=== PATIENT | female | born 2000 | race Two or more races ===

== ENCOUNTER 2020-12-14 15:33 | Outpatient (REF) | payer MEDICAID, SELFPAY ==
[2020-12-15 11:54] LABS: HBc Num1 0.06 S/CO (0.00-0.79); HBsAGNum1 0.19 S/CO (0.00-0.99); Hepatitis B Core Antibody Nonreactive (Nonreactive); Hepatitis B Surface Antigen Negative (Negative)
[2020-12-15 13:41] LABS: Rubeola IgG (Measles) >300.00 AU/mL
[2020-12-15 17:21] LABS: Rubella IgG Antibody 3.21 Index; Varicella IgG Antibody <135.00 index
[2020-12-16 08:36] LABS: HBS Num1 0.58 mIU/mL (0-7.99); ~Hepatitis B Surface Antibody NONREACTIVE (Nonreactive)
== END 2020-12-14 15:34 | disposition home or self-care (01) ==
LOC: HO.LAB 15:33
PROVIDERS: PCP Internal Medicine; Visit Provider Internal Medicine
DX: Z01.84 Encounter for antibody response examination (principal)
CPT/HCPCS: 36415; 86704; 86706; 86735; 86762; 86765; 86787; 87340

== ENCOUNTER 2021-05-24 14:01 | Outpatient (REF) | payer MEDICAID, SELFPAY ==
--- NOTE | ~2021-05-24 | XR_ITS ---
EXAMINATION: XR LUMBOSACRAL SPINE CLINICAL INFORMATION: Pain COMPARISON: None TECHNIQUE: Four views of the lumbosacral spine. FINDINGS: The vertebral bodies and posterior elements are normal. The disc spaces are preserved and the vertebral alignment is normal. The paraspinal soft tissues are normal. XR/XR lumbar spine 2-3V IMPRESSION: Unremarkable examination.
[2021-05-24 14:38] LABS: Hematocrit 37.3 % (37.0-47.0); Mean Corpuscular HGB Conc 32.2 g/dl (31.0-35.0); Mean Corpuscular Hemoglobin 26.4 pg (27.0-33.0); Mean Platelet Volume 9.7 fL (9.4-12.3); Platelet Count 342 X10*3/uL (160-400); Red Blood Count 4.55 X10*6/uL (4.20-5.50); Red Cell Distribution Width 13.2 % (11.0-16.0); White Blood Count 6.4 X10*3/uL (4.8-10.8)
[2021-05-24 15:01] LABS: Alanine Aminotransferase 20 U/L (0-31); Albumin Level 4.2 g/dL (3.5-5.0); Alkaline Phosphatase 109 U/L (39-117); Anion Gap 12 (12-20); Aspartate Amino Transferase 16 U/L (5-31); Bilirubin Total 0.5 mg/dL (0.0-1.0); Blood Urea Nitrogen 16 mg/dL (9-16); Calcium 9.8 mg/dL (8.4-10.2); Carbon Dioxide 28 mmol/L (22-29); Chloride 104 mmol/L (96-108); Estimated Glomerular Filt Rate > 60; Glucose Random 106 mg/dL (60-115); Sodium 140 mmol/L (135-145); Total Protein 7.5 g/dL (6.5-8.0)
[2021-05-24 15:21] LABS: Thyroid Stimulating Hormone 0.36 uIU/mL (0.32-4.0); Vitamin D 25-OH Total 8.1 ng/mL (>30)
[2021-05-24 16:58] LABS: Folate 10.6 ng/mL (> or = 4.0); Vitamin B12 617 pg/mL (200-900)
[2021-05-25 08:32] LABS: HBS Num1 2.58 mIU/mL (0-7.99); HBc Num1 0.08 S/CO (0.00-0.79); HBsAGNum1 0.17 S/CO (0.00-0.99); Hepatitis B Core Antibody Nonreactive (Nonreactive); Hepatitis B Surface Antigen Negative (Negative); ~Hepatitis B Surface Antibody NONREACTIVE (Nonreactive)
[2021-05-26 20:36] LABS: TS Negative Control Passed; TS Panel A 0; TS Panel B 0; TS Positive Control Passed; TSpotTB Negative (Negative)
== END 2021-05-24 14:02 | disposition home or self-care (01) ==
LOC: HO.XRAY 14:01
PROVIDERS: PCP Internal Medicine; Visit Provider Nurse Practitioner Family
DX: Z01.84 Encounter for antibody response examination (principal); Z11.1 Encounter for screening for respiratory tuberculosis; R53.83 Other fatigue; M54.9 Dorsalgia, unspecified; Z28.3 Underimmunization status
CPT/HCPCS: 36415; 72100; 80053; 82306; 82607; 82746; 84443; 85027; 86481; 86704; 86706; 86787; 87340

== ENCOUNTER 2021-06-08 11:54 | Emergency (ER) | payer MEDICAID, SELFPAY ==
[2021-06-08 12:11] VITALS: BP 144/76; PULSE 108; RESP 18; TEMP 36.9; O2SAT 97; BMI 33.4
--- NOTE | 2021-06-08 14:08 | ED.GENADULT ---
HPI - General Adult General Chief complaint: General Medical Stated complaint: rash, ?allergic reaction Time Seen by Provider: 06/08/21 14:07 Source: patient Mode of arrival: ambulatory Limitations: no limitations History of Present Illness HPI narrative: 21-year-old female presents for a rash in her bilateral upper thighs. Yesterday patient had a migraine, and took Tylenol. After the Tylenol she had reports a rash all over her face, size, stomach, back, and chest. States the rash is painful mildly itchy. No new soaps, body wash, laundry detergent, clothes, foods, etc.. No wheezing, no tongue swelling, no lip swelling, no throat swelling, patient is not short of breath, no chest pain In addition, patient has had sore throat, a dry cough, and body aches that started yesterday as well. She states her mother took her temperature and told her she had a fever last night. She took a negative COVID test last night at home She is vaccinated for COVID, Related Data Previous Rx's Medication Instructions Recorded hydroxyzine HCl 25 mg tablet 25 mg PO BID PRN #10 tab 05/02/21 cholecalciferol (vitamin D3) 25 25 mcg PO DAILY #90 cap 05/25/21 mcg (1,000 unit) capsule famotidine 40 mg tablet (Pepcid) 40 mg PO BEDTIME #10 tab 06/08/21 prednisone 20 mg tablet 60 mg PO DAILY 5 Days #15 tab 06/08/21 Allergies Allergy/AdvReac Type Severity Reaction Status Date / Time No Known Allergies Allergy Verified 05/02/21 15:53 Review of Systems Constitutional: Constitutional: Reports body ache(s), Reports chills, Reports fatigue, Reports fever(s), Reports headache(s), Reports malaise and Denies weakness Eyes: Eyes: Denies diplopia ENT: Denies vertigo, Denies dizziness, Denies otalgia, Reports headache(s), Denies mouth pain, Reports nasal congestion, Denies post nasal drip, Denies sinus pain, Denies sinus pressure, Reports sore throat and Denies throat swelling Cardiovascular: Cardiovascular: Denies chest pain, Denies syncope, Denies leg edema, Denies lightheadedness, Denies Loss of Consciousness, Denies palpitations and Denies dyspnea Respiratory: Respiratory: Denies chest congestion, Reports cough and Denies dyspnea Gastrointestinal: Gastrointestinal: Denies abdominal pain, Denies hematochezia, Denies constipation, Denies diarrhea, Denies nausea and Denies vomiting Musculoskeletal: Musculoskeletal: Reports no additional musculoskeletal complaints Integumentary/Breasts: Skin/Breast: Reports rash Neurologic: Denies confusion, Denies vertigo, Denies dizziness, Denies syncope, Reports headache(s) and Denies weakness Psychiatric: Psychiatric: Denies anxiety, Denies confusion and Denies depression Endocrine: Endocrine: Reports fatigue and Denies palpitations Allergic/Immunologic: Allergic/Immunologic: Denies throat swelling PMFSH Past Medical History Medical History Hypovitaminosis Immunizations incomplete Neutropenia Surgical History Hx laparoscopic cholecystectomy Family History Family History Father Hypertension Mother No problems noted. Paternal Grandfather Hypertension Diabetes Paternal Uncle Stroke Brother No problems noted. Brother No problems noted. 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 Cognitive needs: No Hearing needs: No Vision needs: Yes (Glasses) Physical Exam Vital Signs: Vital Signs: Last Vital Signs Temp 97.8 F 06/08/21 14:30 Pulse 97 06/08/21 14:30 Resp 15 06/08/21 14:30 BP 113/60 06/08/21 14:30 Pulse Ox 99 06/08/21 14:30 BMI result Body Mass Index 33.4 Const: General: well developed, alert and awake; No confusion Nutritional Appearance: well nourished Orientation/consciousness: patient oriented x3 and No confusion Limitations: no limitations HENMT: Head: Yes normal to inspection, Yes normocephalic and Yes atraumatic Ears: hearing grossly normal bilaterally, external ears normal, TM's normal bilaterally and EAC's normal General nose exam: Normal external nose present Face and sinus: Yes normal facial exam and Yes sinuses nontender Mouth: Normal oral and palatal mucosa present and moist mucous membranes Throat: Yes posterior oropharynx abnormal (Erythematous) and Yes postnasal drainage Eyes: Conjunctivae: conjunctivae normal Pupils: Equal, round and reactive pupils present EOM: EOMs intact bilaterally Neck: Neck: Yes full ROM, Yes no lymphadenopathy and Yes supple Resp: Effort & Inspection: normal respiratory effort and able to speak in complete sentences Auscultation: clear to auscultation bilaterally, no crackles, no rales, no rhonchi and no wheezes Cardio: Rate: regular rate Rhythm: regular rhythm Heart sounds: S1 normal heart sound present and S2 normal heart sound present GI: Inspection: Yes normal to inspection Palpation (GI): Soft to palpation, nontender, no guarding and not rigid Percussion: Yes normal to percussion Auscultation: normal bowel sounds Skin: Other: Diffuse maculopapular rash bilateral upper thighs that is blanching. Neuro: General: patient oriented x3 and No confusion Cranial nerves: Yes Equal, round and reactive pupils present Extrem: General: Yes normal to inspection and Yes full ROM Psych: Appearance: grossly normal Affect: normal affect Attitude: cooperative Thought process: Normal thought process present Course Course Course Narrative: 21-year-old female presents for rash on bilateral upper thighs with COVID like symptoms. Patient has a patent airway, lungs clear to auscultation bilaterally, no wheezing, no angioedema Rash is macular papular, diffuse over bilateral inner thighs. Rash is blanching. Patient has stable vitals, will get COVID swab, treat with prednisone, Pepcid, Benadryl Reevaluation(s) Reevaluation #1: Patient is COVID positive. Will send patient home on prednisone, Pepcid, Benadryl. Counseled isolate for 10 days, drink plenty of fluids, and rest. Counseled no more Tylenol, as this could be the cause of her rash. Counseled to return to emergency room if chest tightness, wheezing, throat swelling, lip swelling or shortness of breath. Counseled patient she showed talk to her primary care provider as they meant want to do allergy referral as patient may have had an allergic reaction to Tylenol Medical Decision Making Lab Data Labs: Lab Results 06/08/21 Range/Units 14:30 COVID-19 (JESSICA) Positive A (Negative) COVID-19 Clin Com See Note Discharge Plan Discharge Clinical Impression: COVID-19 Allergic reaction Qualifiers: Encounter type: initial encounter Qualified Code(s): T78.40XA - Allergy, unspecified, initial encounter Patient Disposition: Home, Self-Care Instructions: Allergy Testing (ED), COVID-19 (Coronavirus Disease 2019) (ED) Additional Instructions: Please call your primary care provider for follow-up appointment to investigate the source of your rash. You may knee allergy testing. Please DO NOT take anymore Tylenol, as this could be the source of your rash. Please quarantine for 10 days, isolated at home, stay in 1 room, supper bathroom, where mass, wash her hands. Fill your prescription for prednisone and Pepcid, you may take Benadryl for the itching as needed. You may buy Benadryl [id number]. Please return to the emergency room he have chest pain or shortness of breath, or for any other new or concerning symptoms Prescriptions: New prednisone 20 mg tablet 60 mg PO DAILY 5 Days Qty: 15 RF: 0 famotidine [Pepcid] 40 mg tablet 40 mg PO BEDTIME Qty: 10 RF: 0 No Action cholecalciferol (vitamin D3) 25 mcg (1,000 unit) capsule 25 mcg PO DAILY Qty: 90 RF: 0 hydroxyzine HCl 25 mg tablet 25 mg PO BID PRN (Reason: anxiety) Qty: 10 RF: 0
[2021-06-08 14:30] VITALS: BP 113/60; PULSE 97; RESP 15; TEMP 36.6; O2SAT 99
[2021-06-08 14:48] LABS: COVID-19 Test Positive (Negative)
[2021-06-08] MEDS: Famotidine 20 MG TABLET PO (16:16)
[2021-06-08] MEDS: diphenhydrAMINE HCL 25 MG TABLET PO (16:16)
[2021-06-08] MEDS: predniSONE 20 MG TABLET 60 MG PO (16:16)
== END 2021-06-08 16:21 | disposition home or self-care (01) ==
PROVIDERS: Physician Assistant; Emergency Provider Emergency Medicine; PCP Internal Medicine
DX: U07.1 COVID-19 (principal); R21 Rash and other nonspecific skin eruption; Z79.899 Other long term (current) drug therapy
CPT/HCPCS: 36415; 87635; 99283; Q0163

== ENCOUNTER 2021-11-17 10:00 | Outpatient (RCR) | payer MEDICAID, SELFPAY ==
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
--- NOTE | 2021-11-20 16:23 | MHC.PT.DC ---
[facility] [place] Office [place] Office [place] Office [address] Hermelinda De Dios [address] [phone] F: [phone] F: [phone] F: [phone] F: [phone] Physical Therapy Discharge Report Diagnosis: Pt IS 21 YO F REFERRED TO PF [facility] WITH DORSALGIA. Date of Surgery: NA Date of Evaluation: 10/30/21 Date of Discharge: 11/20/21 Treatments to Date: 4 Cancellations to Date: No Shows to Date: Discharge Status: Patient Elected to Stop Recommend MD Follow-up Discharge Summary: Pt SEEN FOR INIT EVAL AND 3 VISITS. HAS BEGUN HOME PROGRAM, TRIAL KT AND EDUCATED RE POSTURE/BACK CARE. AT LAST APPT PER ASSESSMENT BY ANDREWS WALDRON, PT. Pt CHALLENGED W KINESTHETIC AWARENESS , ESPEC W STAG STANCE EXER- INCR TISSUE TENSION CYNTHIA LUMB PS MM AND REINFORCED SELF POSTURAL CORRECTION, PROPER SUPPORTIVE BRA, AND BENEFITS OF HEP-> LESS GUARDED AFTER ABOVE . ON 11/20/21, Pt THEN CALLED TO CANCEL FURTHER APPTS BECAUSE SHE HAS A NEW JOB. Electronically signed by: SEN ETIENNE PT Please sign and return to therapist. Thank you for your referral.
== END 2021-11-20 16:23 | disposition home or self-care (01) ==
LOC: HO.PT 10:00
PROVIDERS: PCP Internal Medicine; Visit Provider Nurse Practitioner Family
DX: M54.9 Dorsalgia, unspecified (principal)
CPT/HCPCS: 97110; 97112; 97140; 97161; 97535

== ENCOUNTER 2022-01-24 10:31 | Outpatient (REF) | payer MEDICAID, SELFPAY ==
[2022-01-24 12:21] LABS: Alanine Aminotransferase 17 U/L (0-31); Albumin Level 4.3 g/dL (3.5-5.0); Alkaline Phosphatase 109 U/L (39-117); Anion Gap 14 (12-20); Aspartate Amino Transferase 17 U/L (5-31); Bilirubin Total 0.3 mg/dL (0.0-1.0); Blood Urea Nitrogen 11 mg/dL (9-16); Calcium 9.3 mg/dL (8.4-10.2); Carbon Dioxide 26 mmol/L (22-29); Chloride 105 mmol/L (96-108); Cholesterol 110 mg/dL; Estimated Glomerular Filt Rate > 60; Glucose Fasting 105 mg/dL (60-99); HDL Cholesterol 35 mg/dL; LDL Cholesterol Calculated 67 mg/dl; Potassium 4.4 mmol/L (3.3-5.1); Sodium 141 mmol/L (135-145); Total Protein 7.5 g/dL (6.5-8.0); Triglycerides 43 mg/dL
[2022-01-24 12:34] LABS: HBsAGNum1 0.32 S/CO (0.00-0.99); HIV AB/AG Nonreactive (Nonreactive); HIV Num 1 0.08 S/CO (0.00-0.99); Hepatitis B Surface Antigen Negative (Negative); ~HepC Num1 0.04 S/CO (0.00-0.79); ~Hepatitis C Antibody Nonreactive (Nonreactive)
[2022-01-24 12:43] LABS: Vitamin D 25-OH Total 15.7 ng/mL (>30)
[2022-01-24 12:59] LABS: Syphilis Screen Nonreactive (Nonreactive)
[2022-01-24 18:24] LABS: CT PCR NOT DETECTED (Not Detect.); NG PCR NOT DETECTED (Not Detect.)
[2022-01-25 09:39] LABS: BV Int Neg Control Negative (Negative); BV Int Pos Control Positive (Positive)
== END 2022-01-24 10:32 | disposition home or self-care (01) ==
LOC: HO.LAB 10:31
PROVIDERS: Absent Provider Internal Medicine; PCP Internal Medicine; Visit Provider Advanced Practice Midwife
DX: Z01.419 Encounter for gynecological examination (general) (routine) without abnormal findings (principal); Z11.3 Encounter for screening for infections with a predominantly sexual mode of transmission; Z11.4 Encounter for screening for human immunodeficiency virus [HIV]; Z11.59 Encounter for screening for other viral diseases; Z13.220 Encounter for screening for lipoid disorders; E55.9 Vitamin D deficiency, unspecified; E66.9 Obesity, unspecified; Z68.34 Body mass index [BMI] 34.0-34.9, adult
CPT/HCPCS: 36415; 80053; 80061; 82306; 86780; 86803; 87340; 87389; 87480; 87491; 87510; 87591; 87660; 88142

== ENCOUNTER 2022-07-10 00:22 | Emergency (ER) | payer MEDICAID, SELFPAY ==
[2022-07-10 00:25] VITALS: BP 124/78; PULSE 93; RESP 18; TEMP 36.1; O2SAT 93; BMI 36.5
[2022-07-10 00:58] LABS: COVID-19 Test Positive (Negative); IDNOW Serial# BCCEAD1C
[2022-07-10 01:06] VITALS: BP 133/69; PULSE 95; TEMP 37.1; O2SAT 96
[2022-07-10 01:10] LABS: IDNOW Serial# 16C4AD1C; Influenza A Negative (Negative); Influenza B2 Negative (Negative)
--- NOTE | 2022-07-10 01:14 | ED.URI ---
HPI - URI/Sore Throat General Chief Complaint: Upper Respiratory Symptoms Stated Complaint: joint pain, chills, cough Time Seen by Provider: 07/10/22 01:11 Source: patient Mode of arrival: ambulatory Limitations: no limitations History of Present Illness HPI Narrative: Patient comes to the emergency room complaining of 2 days of cough, diffuse body aches, fever, chills. Denies nausea vomiting diarrhea, no chest pain or shortness of breath. Related Data Previous Rx's Medication Instructions Recorded desogestrel-e.estradiol 0.15 1 tab PO DAILY #84 tabs 01/24/22 mg-0.02 mg(21)/e.estrad 0.01 mg(5) tablet albuterol sulfate 90 mcg/actuation 2 puff inhalation Q6H PRN 04/19/22 aerosol inhaler shortness of breath or wheezing 30 days #6.7 grams acetaminophen 500 mg tablet 500 mg PO Q6H PRN fever or pain 07/10/22 #20 tabs nirmatrelvir 300 mg (150 mg See Rx Instructions PO .COMPLEX 07/10/22 x2)-ritonavir 100 mg tablet,dose #30 ea pack(EUA) (Paxlovid) Allergies Allergy/AdvReac Type Severity Reaction Status Date / Time No Known Allergies Allergy Verified 01/24/22 09:46 Review of Systems Review of Systems: Constitutional : No Weight loss, complaining of subjective fever, chills, fatigue and generalized malaise ENT/Mouth : No Hearing loss, No Ear Pain, No Nasal Congestion, No Sinus Pain, No Hoarseness, No sore throat, No Rhinorrhea, No Swallowing Difficulty Eyes: No Eye Pain, No Swelling, No Redness, No Foreign Body, No Discharge, No Vision Changes Cardiovascular : No Chest Pain, No SOB, No Dyspnea on Exertion, No Orthopnea, No Edema, No Palpitations Respiratory : Complaining of dry Cough, No Sputum, No Wheezing, No Smoke Exposure, No Dyspnea Gastrointestinal : No Nausea, No Vomiting, No Diarrhea, No Constipation, No abdominal Pain, No Hematochezia, No Melena Genitourinary : no irregular bleeding, No Dysuria, No Urinary Frequency, No Hematuria, No Urinary Incontinence, No Urgency, No Flank Pain, No Urinary Flow Changes, No Hesitancy Musculoskeletal : No joint pain, No Myalgias, No Joint Swelling Skin : No Skin Lesions, No rash Neuro : No Weakness, No Numbness, No Paresthesias, No Loss of Consciousness, No Dizziness, No Headache Psych : No Anxiety/Panic, No Depression, No SI/HI/AH/VH, No Social Issues, Heme/Lymph: No Bruising, No Bleeding,No Lymphadenopathy Endocrine : No Polyuria, No Polydipsia, No Temperature Intolerance PMF Past Medical History Medical History Allergic reaction Hypovitaminosis Immunizations incomplete Mild recurrent major depression Neutropenia Panic attacks Rash Sacral pain Surgical History Hx laparoscopic cholecystectomy Family History Family History Father Hypertension Mother No problems noted. Paternal Grandfather Hypertension Diabetes Paternal Uncle Stroke Brother No problems noted. Brother No problems noted. Social History Social History Housing: House Alcohol intake: never Patient Tobacco Use Status: Never used Tobacco e-Cigarette/Vaping Use: Never Used Second Hand Smoke Exposure: No Advance Directives: No service: No Current occupational status: employed and student Cognitive needs: No Hearing needs: No Vision needs: Yes (Glasses) Physical Exam Vital Signs: Vital Signs: Last Vital Signs Temp 98.8 F 07/10/22 01:06 Pulse 95 07/10/22 01:06 Resp 18 07/10/22 00:25 BP 133/69 07/10/22 01:06 Pulse Ox 96 07/10/22 01:06 O2 Del Method 07/10/22 01:06 BMI result Body Mass Index 36.5 Const: Other: Appearance: Alert. Oriented X3. No acute distress. Eyes: Pupils equal, round and reactive to light. ENT: Pharynx normal. Neck: Normal inspection. Neck supple. No lymph nodes noted. No crepitus CVS: Normal heart rate and rhythm. Pulses normal. Normal S1 and S2 Respiratory: No respiratory distress. Breath sounds normal. No Wheezing. No rales , actively coughing Abdomen: Soft and nontender. No rigidity. No distention. Skin: Skin warm and dry. Normal skin color. Normal skin turgor. Extremities: No lower extremity edema. No Lacerations. No Rash Neuro: Oriented X 3. No motor deficit. No sensory deficit. Moving all extremities. No slurred speech. CN 2 through 12 grossly intact Psych: calm, cooperative, normal affect Medical Decision Making Medical Decision Making MDM Narrative: -patient's vitals are stable, oxygen saturation 96% on room air, respiratory rate 18. No oxygen saturation in the ED -discussed with the patient that she tested positive for COVID-19. Patient is on her 2nd day of symptoms. Just with the patient starting paxlovid versus treating symptomatically. Patient decided to take paxlovid Lab Data Labs: Lab Results 07/10/22 07/10/22 Range/Units 00:31 00:31 COVID-19 (JESSICA) Positive A (Negative) COVID-19 Clin Com See Note Influenza Type A (JULIANNA) Negative (Negative) Influenza Type B (JULIANNA) Negative (Negative) Influenza A & B Note See Note Discharge Plan Discharge Clinical Impression: COVID-19 Patient Disposition: Home, Self-Care Instructions: COVID-19 (Coronavirus Disease 2019) (ED) Additional Instructions: Please follow-up with your primary care physician tomorrow. If you have any worsening or new symptoms, please return to the emergency room or call 911 Prescriptions: New Paxlovid (EUA) 300 mg (150 mg x 2)-100 mg tablets,dose pack See Rx Instructions .ROUTE .COMPLEX Qty: 30 0RF Rx Instructions: take TWO 150 mg tablets of nirmatrelvir with ONE 100 mg tablet of ritonavir twice daily for 5 days acetaminophen 500 mg tablet 500 mg PO Q6H PRN (Reason: fever or pain) Qty: 20 0RF No Action albuterol sulfate 90 mcg/actuation HFA aerosol inhaler 2 puff inhalation Q6H PRN (Reason: shortness of breath or wheezing) 30 Days Qty: 6.7 1RF desog-e.estradiol/e.estradiol 0.15-0.02 mgx21 /0.01 mg x 5 tablet 1 tab PO DAILY Qty: 84 1RF
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
--- NOTE | 2022-07-10 01:41 | PC.NURSE ---
Discharge instructions reviewed with pt. Pt verbalizes understanding.
== END 2022-07-10 01:42 | disposition home or self-care (01) ==
PROVIDERS: Emergency Provider Emergency Medicine; PCP Internal Medicine
DX: U07.1 COVID-19 (principal)
CPT/HCPCS: 87502; 87635; 99283

== ENCOUNTER 2022-07-24 11:38 | Outpatient (REF) | payer MEDICAID, SELFPAY ==
--- NOTE | ~2022-07-24 | XR_ITS ---
EXAMINATION: XR KNEE, RIGHT CLINICAL INFORMATION: Pain. COMPARISON: None TECHNIQUE: AP and lateral views of the right knee. FINDINGS: Bones and soft tissues are normal. No fracture or joint effusion. Alignment is anatomic. Joint spaces are well maintained. No abnormal soft tissue calcification. XR/XR knee RT 2V IMPRESSION: Normal right knee.
--- NOTE | ~2022-07-24 | XR_ITS ---
EXAMINATION: XR WRIST, RIGHT CLINICAL INFORMATION: Pain. COMPARISON: None TECHNIQUE: PA, lateral, and oblique views of the right wrist, together with a dedicated navicular view. FINDINGS: The bones and soft tissues are normal. No fracture. Alignment is anatomic with normal joint spaces. No erosions or abnormal soft tissue calcifications. XR/XR wrist RT min 3V IMPRESSION: Normal right wrist.
[2022-07-24 14:03] LABS: Thyroid Stimulating Hormone 1.26 uIU/mL (0.32-4.0)
[2022-07-24 14:05] LABS: Vitamin D 25-OH Total 9.5 ng/mL (>30)
== END 2022-07-24 11:39 | disposition home or self-care (01) ==
LOC: HO.LAB 11:38
PROVIDERS: Nurse Practitioner Family; PCP Internal Medicine; Visit Provider Internal Medicine
DX: M25.561 Pain in right knee (principal); M25.531 Pain in right wrist; R63.4 Abnormal weight loss; R79.89 Other specified abnormal findings of blood chemistry
CPT/HCPCS: 36415; 73110; 73560; 82306; 84443

== ENCOUNTER → 2022-07-31 09:47 | Outpatient (BNVA) | payer MEDICAID, SELFPAY | PROVIDERS: PCP Internal Medicine; Visit Provider Physician Assistant | DX: Z13.89 Encounter for screening for other disorder (principal) ==

== ENCOUNTER 2022-07-31 10:20 | Outpatient (REF) | payer MEDICAID, SELFPAY ==
[2022-07-31 13:52] LABS: MANUAL DIFF FLAG NO
[2022-07-31 14:00] LABS: Basophils Percent Auto 0.4 % (0-2); Eosinophils Absolute Auto 0.1 X10*3/uL (0.0-0.4); Eosinophils Percent Auto 1.4 % (0-4); Hematocrit 37.6 % (37.0-47.0); Imm Gran Abs Auto 0.02 X10*3/uL (0.00-0.03); Imm Gran Pct Auto 0.3 % (0.0-0.4); Lymphocytes Absolute Auto 1.7 X10*3/uL (1.2-4.9); Lymphocytes Percent Auto 25.1 % (20-40); Mean Corpuscular HGB Conc 31.9 g/dl (31.0-35.0); Mean Corpuscular Hemoglobin 25.5 pg (27.0-33.0); Mean Platelet Volume 10.9 fL (9.4-12.3); Monocytes Absolute Auto 0.6 X10*3/uL (0.1-1.2); Monocytes Percent Auto 8.4 % (2-11); Neutrophils Absolute Auto 4.5 x10*3/uL (2.0-8.3); Neutrophils Percent Auto 64.4 % (45-73); Platelet Count 331 X10*3/uL (160-400); Red Cell Distribution Width 15.3 % (11.0-16.0); White Blood Count 6.9 X10*3/uL (4.8-10.8)
[2022-07-31 14:43] LABS: Erythrocyte Sedimentation Rate 14 MM/HR (0-20)
[2022-07-31 14:49] LABS: Alanine Aminotransferase 28 U/L (0-31); Albumin Level 3.9 g/dL (3.5-5.0); Alkaline Phosphatase 88 U/L (39-117); Anion Gap 13 (12-20); Aspartate Amino Transferase 18 U/L (5-31); Bilirubin Total 0.3 mg/dL (0.0-1.0); Blood Urea Nitrogen 12 mg/dL (9-16); C Reactive Protein 1.25 mg/dL (< or = 0.50); Calcium 9.4 mg/dL (8.4-10.2); Carbon Dioxide 27 mmol/L (22-29); Chloride 105 mmol/L (96-108); Estimated Glomerular Filt Rate > 60; Glucose Random 88 mg/dL (60-115); Potassium 4.5 mmol/L (3.3-5.1); Sodium 140 mmol/L (135-145); Total Protein 7.1 g/dL (6.5-8.0)
[2022-07-31 14:52] LABS: HCG Quantitative < 2 mIU/mL
== END 2022-07-31 10:21 | disposition home or self-care (01) ==
LOC: HO.WFDLDS 10:20
PROVIDERS: Visit Provider Physician Assistant
DX: R10.9 Unspecified abdominal pain (principal); K58.9 Irritable bowel syndrome, unspecified; R11.0 Nausea
CPT/HCPCS: 36415; 80053; 84702; 85025; 85652; 86140; 99202

== ENCOUNTER 2022-11-02 08:00 | Outpatient (REF) | payer MEDICAID, SELFPAY ==
[2022-11-02 09:29] LABS: MANUAL DIFF FLAG NO
[2022-11-02 09:51] LABS: Basophils Percent Auto 0.4 % (0-2); Eosinophils Absolute Auto 0.2 X10*3/uL (0.0-0.4); Eosinophils Percent Auto 1.9 % (0-4); Hematocrit 39.4 % (37.0-47.0); Hemoglobin 12.5 g/dl (12.0-16.0); Imm Gran Abs Auto 0.03 X10*3/uL (0.00-0.03); Imm Gran Pct Auto 0.3 % (0.0-0.4); Lymphocytes Absolute Auto 2.4 X10*3/uL (1.2-4.9); Lymphocytes Percent Auto 26.9 % (20-40); Mean Corpuscular HGB Conc 31.7 g/dl (31.0-35.0); Mean Corpuscular Hemoglobin 25.8 pg (27.0-33.0); Mean Corpuscular Volume 81.2 fL (80.0-98.0); Mean Platelet Volume 10.3 fL (9.4-12.3); Monocytes Absolute Auto 0.8 X10*3/uL (0.1-1.2); Monocytes Percent Auto 8.6 % (2-11); Neutrophils Absolute Auto 5.5 x10*3/uL (2.0-8.3); Neutrophils Percent Auto 61.9 % (45-73); Platelet Count 336 X10*3/uL (160-400); Red Blood Count 4.85 X10*6/uL (4.20-5.50); Red Cell Distribution Width 13.4 % (11.0-16.0); White Blood Count 8.9 X10*3/uL (4.8-10.8)
[2022-11-02 09:57] LABS: Estimated Average Glucose 111 mg/dL; Hemoglobin A1c % 5.5 %
[2022-11-02 10:28] LABS: Alanine Aminotransferase 25 U/L (0-31); Albumin Level 4.5 g/dL (3.5-5.0); Alkaline Phosphatase 112 U/L (39-117); Anion Gap 12 (12-20); Aspartate Amino Transferase 18 U/L (5-31); Bilirubin Total 0.4 mg/dL (0.0-1.0); Blood Urea Nitrogen 18 mg/dL (9-16); C Reactive Protein 1.02 mg/dL (< or = 0.50); Calcium 9.9 mg/dL (8.4-10.2); Carbon Dioxide 27 mmol/L (22-29); Chloride 105 mmol/L (96-108); Estimated Glomerular Filt Rate > 60; Glucose Random 95 mg/dL (60-115); Potassium 4.4 mmol/L (3.3-5.1); Sodium 140 mmol/L (135-145); Total Protein 7.8 g/dL (6.5-8.0)
[2022-11-02 10:31] LABS: Rheumatoid Factor < 13.0 IU/mL (<15.0)
[2022-11-02 10:36] LABS: HBc Num1 0.09 S/CO (0.00-0.79); HBsAGNum1 0.35 S/CO (0.00-0.99); Hepatitis A Antibody IgM 0.18 Index (0-0.79); Hepatitis B Core Antibody Nonreactive (Nonreactive); Hepatitis B Surface Antigen Negative (Negative); ~HepC Num1 0.08 S/CO (0.00-0.79); ~Hepatitis A Antibody IgM Nonreactive (Nonreactive); ~Hepatitis B Surface Antibody NONREACTIVE (Nonreactive); ~Hepatitis C Antibody Nonreactive (Nonreactive)
[2022-11-02 10:39] LABS: Erythrocyte Sedimentation Rate 12 MM/HR (0-20)
[2022-11-02 11:15] LABS: Appearance Urine Cloudy; Color Urine Yellow; Glucose Urine UA Negative (Negative); Leukocyte Esterase Urine Negative (Negative); Nitrite Urine Negative (Negative); PH 6.5 (5.0-9.0); Specific Gravity - Urine >= 1.030 (1.005-1.025); Urine Blood Negative (Negative); Urine Ketones Negative (Negative); Urine Protein Trace mg/dL (Neg-Trace)
[2022-11-02 11:22] LABS: Bacteria Urine 1+ (None Seen); Hyaline Casts Urine 0-2 /LPF (0-2); WBC Urine 0-5 /HPF (0-5)
[2022-11-02 11:24] LABS: Creatinine Urine 310.37 mg/dL; Protein/Creatinine Ratio, Ur 0.05 (<0.2); Total Protein Urine Random 15 mg/dL (<12)
[2022-11-04 23:20] LABS: TS Negative Control Passed; TS Panel A 2; TS Panel B 0; TS Positive Control Passed; TSpotTB Negative (Negative)
[2022-11-05 18:28] LABS: Prot Elec - Albumin 4.1 g/dL (3.8-4.8); Prot Elec - Alpha1 0.4 g/dL (0.2-0.3); Prot Elec - Alpha2 0.9 g/dL (0.5-0.9); Prot Elec - Beta 1 0.6 g/dL (0.4-0.6); Prot Elec - Beta 2 0.5 g/dL (0.2-0.5); Prot Elec - Gamma 1.3 g/dL (0.8-1.7); Prot Elec - Total Protein 7.8 g/dL (6.1-8.1)
[2022-11-06 14:23] LABS: Cyclic Citrullinated Peptide <16 UNITS
[2022-11-06 14:53] LABS: IgA 383 mg/dL (47-310); IgG 1347 mg/dL (600-1640); IgM 96 mg/dL (50-300)
[2022-11-06 21:58] LABS: Anti DNA DS Antibody 1 IU/mL; Antibody to SS-A Antigen <1.0 NEG AI (<1.0 NEG); Antibody to SS-B Antigen <1.0 NEG AI (<1.0 NEG); SM/Ribonucleoprotein Ab <1.0 NEG AI (<1.0 NEG); Smith Protein <1.0 NEG AI (<1.0 NEG)
[2022-11-07 18:39] LABS: Complement C3 181 mg/dL (83-193)
[2022-11-10 12:58] LABS: Anti Nuclear Antibody Screen NEGATIVE (NEGATIVE)
== END 2022-11-02 08:01 | disposition home or self-care (01) ==
LOC: HO.LAB 08:00
PROVIDERS: PCP Internal Medicine; Visit Provider Student in an Organized Health Care Education/Training Program
DX: Z11.59 Encounter for screening for other viral diseases (principal); Z11.7 Encounter for testing for latent tuberculosis infection; M06.9 Rheumatoid arthritis, unspecified; M32.9 Systemic lupus erythematosus, unspecified; E11.9 Type 2 diabetes mellitus without complications; M25.50 Pain in unspecified joint; Z72.89 Other problems related to lifestyle
CPT/HCPCS: 36415; 80053; 81001; 82784; 83036; 84156; 84165; 85025; 85652; 86038; 86140; 86160; 86200; 86225; 86235; 86334; 86431; 86481; 86704; 86706; 86709; 86803; 87340; 99202

== ENCOUNTER 2022-11-06 07:03 | Outpatient (REF) | payer MEDICAID, SELFPAY ==
--- NOTE | ~2022-11-06 | XR_ITS ---
EXAMINATION: XR KNEE LEFT, 3 VIEWS XR KNEE, RIGHT 3 VIEWS XR KNEE STANDING, BILATERAL CLINICAL INFORMATION: Rheumatoid arthritis. COMPARISON: Right knee x-rays of 07/24/2022. TECHNIQUE: Single standing AP view of the bilateral knees is acquired. Additional 3 views of each knee are acquired; tunnel, lateral and patellar views. FINDINGS: BILATERAL KNEES: Normal osseous mineralization. Joint spaces are preserved. There is no evidence of significant subarticular sclerosis or cystic changes. No marginal osteophytic changes are seen. No focal erosions are seen. No evidence of soft tissue calcification or suprapatellar joint effusion. Essentially, no significant abnormalities of the bones, joints or soft tissues is demonstrated. XR/XR knee LT 3V IMPRESSION: No radiographic changes suggestive of rheumatoid arthritis are seen in the knees. Unremarkable bilateral knee radiographs.
--- NOTE | ~2022-11-06 | XR_ITS ---
EXAMINATION: XR KNEE LEFT, 3 VIEWS XR KNEE, RIGHT 3 VIEWS XR KNEE STANDING, BILATERAL CLINICAL INFORMATION: Rheumatoid arthritis. COMPARISON: Right knee x-rays of 07/24/2022. TECHNIQUE: Single standing AP view of the bilateral knees is acquired. Additional 3 views of each knee are acquired; tunnel, lateral and patellar views. FINDINGS: BILATERAL KNEES: Normal osseous mineralization. Joint spaces are preserved. There is no evidence of significant subarticular sclerosis or cystic changes. No marginal osteophytic changes are seen. No focal erosions are seen. No evidence of soft tissue calcification or suprapatellar joint effusion. Essentially, no significant abnormalities of the bones, joints or soft tissues is demonstrated. XR/XR knee standing BI IMPRESSION: No radiographic changes suggestive of rheumatoid arthritis are seen in the knees. Unremarkable bilateral knee radiographs.
--- NOTE | ~2022-11-06 | XR_ITS ---
EXAMINATION: XR KNEE LEFT, 3 VIEWS XR KNEE, RIGHT 3 VIEWS XR KNEE STANDING, BILATERAL CLINICAL INFORMATION: Rheumatoid arthritis. COMPARISON: Right knee x-rays of 07/24/2022. TECHNIQUE: Single standing AP view of the bilateral knees is acquired. Additional 3 views of each knee are acquired; tunnel, lateral and patellar views. FINDINGS: BILATERAL KNEES: Normal osseous mineralization. Joint spaces are preserved. There is no evidence of significant subarticular sclerosis or cystic changes. No marginal osteophytic changes are seen. No focal erosions are seen. No evidence of soft tissue calcification or suprapatellar joint effusion. Essentially, no significant abnormalities of the bones, joints or soft tissues is demonstrated. XR/XR knee RT 3V IMPRESSION: No radiographic changes suggestive of rheumatoid arthritis are seen in the knees. Unremarkable bilateral knee radiographs.
== END 2022-11-06 07:04 | disposition home or self-care (01) ==
LOC: HO.XRAY 07:03
PROVIDERS: PCP Internal Medicine; Visit Provider Student in an Organized Health Care Education/Training Program
DX: M06.9 Rheumatoid arthritis, unspecified (principal)
CPT/HCPCS: 73562; 73564; 73565

== ENCOUNTER 2022-12-11 00:55 | Emergency (ER) | payer MEDICAID, SELFPAY ==
[2022-12-11 01:12] VITALS: BP 113/78; PULSE 95; RESP 18; TEMP 36.7; O2SAT 95; BMI 32.8
[2022-12-11 03:56] VITALS: BP 127/71; PULSE 59; RESP 16; TEMP 36.6; O2SAT 97
[2022-12-11 06:05] VITALS: BP 131/80; PULSE 56; RESP 16; TEMP 36.6; O2SAT 97
--- NOTE | 2022-12-11 06:46 | ED.ABDPAIN ---
HPI - Abdominal Pain General Chief Complaint: Abdominal Pain Stated Complaint: Abd pain Time Seen by Provider: 12/11/22 06:27 Source: patient and family Mode of arrival: ambulatory Limitations: no limitations History of Present Illness HPI narrative: 22 yo female with history of cholecystectomy 5 years ago, depression, obesity, anxiety who presents to the ER for evaluation of severe abdominal pain that started yesterday. She states the pain started in the upper abdomen and migrated down to her periumbilical area and then settled into her RLQ. It lasted several hours and was stabbing in nature, had her keeled over. She reports 2 episodes of vomiting and 2 episodes of nonbloody diarrhea as well. She states the pain was very severe and is now calmed down some in the last few hours to a 7/10. She denies associated fever, chills, or urinary symptoms. Denies chance of and is currently on her menstrual cycle. MD elicited complaint: abdominal pain Onset (ago): day(s) (1) Pain Consistency: constant Location: RLQ Severity: severe Pain scale (0-10): 7 Quality: stabbing Migration to: periumbilical Exacerbating factors: nothing Relieving factors: nothing Context: history of similar episodes Associated symptoms: nausea, vomiting and diarrhea Related Data Home Medications Medication Instructions Recorded Confirmed norelgestromin 150 mcg-e.estradiol 1 patch topical 07/24/22 11/02/22 35 mcg/24 hr weekly transderm patch (Zafemy) Previous Rx's Medication Instructions Recorded albuterol sulfate 90 mcg/actuation 2 puff inhalation Q6H PRN 04/19/22 aerosol inhaler shortness of breath or wheezing 30 days #6.7 grams ondansetron 4 mg disintegrating 4 mg PO Q8H PRN nausea and 12/11/22 tablet vomiting #5 tabs Allergies Allergy/AdvReac Type Severity Reaction Status Date / Time No Known Allergies Allergy Verified 11/02/22 08:15 Review of Systems Review of Systems Yes all other systems are reviewed and are negative [facility] Past Medical History Medical History (Updated 12/11/22 @ 08:18 by DAWSON Flower) Allergic reaction Hypovitaminosis Immunizations incomplete Mild recurrent major depression Neutropenia Panic attacks Rash Sacral pain Surgical History Hx laparoscopic cholecystectomy Family History Family History Father Hypertension Mother No problems noted. Paternal Grandfather Hypertension Diabetes Paternal Uncle Stroke Brother No problems noted. Brother No problems noted. 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 Oriented X3. No acute distress. Head: normocephalic, atraumatic. Eyes: Pupils equal, round and reactive to light. ENT: Pharynx normal. No tonsillar swelling or exudate. Neck: Normal inspection. Neck supple. CVS: Normal heart rate and rhythm. Pulses normal. Respiratory: No respiratory distress. Breath sounds normal. Abdomen: Obese, Soft with RLQ tenderness and guarding, normal active +BS x4 Skin: Skin warm and dry. Normal skin color. Normal skin turgor. No rashes. Extremities: No lower extremity edema. No joint swelling. Neuro/psych: Oriented X 3. No motor deficit. No sensory deficit. CN II-XII intact. Normal speech and cognition. Medical Decision Making Medical Decision Making MDM Narrative: 22 yo female presents to the ER for evaluation of N/V/D and severe abdominal pain that started yesterday, has since improved. Tender RLQ on exam but abd is soft and not peritonitic. No urinary or pelvic symptoms. Not . labs unremarkable. CT scan showing normal appendix, single lymph node enlarged, nonspecific. UA with bloody, +RBC and WBC likely contamination from menses. Patient was tolerating PO. Pain significantly improved after toradol. She most likely has gastroenteritis. She is stable for discharge home with supportive care. Discussed return precautions and all questions were answered. Differential Diagnosis Differential Diagnoses: The differential diagnosis associated with the presentation includes acute appendicitis, colitis, diverticulitis, TOA, gastroenteritis Admission/Observation Consideration of admission/observation: Escalation of care including admission/observation considered 22 yo female with RLQ Pain and tenderness, concern was for acute appendicitis Lab Data MDM Lab Attestation statement: I reviewed the patient's lab results. stable anemia, no leukocytosis, no metabolic derrangement 12/11/22 02:44 12/11/22 02:44 Labs: Lab Results 12/11/22 12/11/22 12/11/22 Range/Units 02:44 02:44 03:58 WBC 7.6 (4.8-10.8) X10*3/uL RBC 4.43 (4.20-5.50) X10*6/uL Hgb 11.5 L (12.0-16.0) g/dl Hct 35.5 L (37.0-47.0) % MCV 80.1 (80.0-98.0) fL MCH 26.0 L (27.0-33.0) pg MCHC 32.4 (31.0-35.0) g/dl RDW 13.1 (11.0-16.0) % Plt Count 284 (160-400) X10*3/uL MPV 9.9 (9.4-12.3) fL Immature Gran % (Auto) 0.3 (0.0-0.4) % Neut % (Auto) 60.0 (45-73) % Lymph % (Auto) 27.9 (20-40) % [place] % (Auto) 9.3 (2-11) % Eos % (Auto) 2.0 (0-4) % Baso % (Auto) 0.5 (0-2) % Lymph # (Auto) 2.1 (1.2-4.9) X10*3/uL [place] # (Auto) 0.7 (0.1-1.2) X10*3/uL Eos # (Auto) 0.2 (0.0-0.4) X10*3/uL Baso # (Auto) 0.0 (0.0-0.2) X10*3/uL Abs Immat Gran (auto) 0.02 (0.00-0.03) X10*3/uL Absolute Neuts (auto) 4.6 (2.0-8.3) x10*3/uL Absolute Nucleated RBC 0.000 (0.0-0.012) X10*3/uL Nucleated RBC % (auto) 0.0 (0.0-0.2) /100WBC Sodium 142 (135-145) mmol/L Potassium 3.7 (3.3-5.1) mmol/L Chloride 108 (96-108) mmol/L Carbon Dioxide 26 (22-29) mmol/L Anion Gap 12 (12-20) BUN 15 (9-16) mg/dL Creatinine 0.79 (0.5-1.4) mg/dL Estim Creat Clear Calc 136.7 Estimated GFR > 60 Random Glucose 116 H (60-115) mg/dL Calcium 9.4 (8.4-10.2) mg/dL Total Bilirubin 0.4 (0.0-1.0) mg/dL Direct Bilirubin 0.1 (0.0-0.5) mg/dL AST 17 (5-31) U/L ALT 17 (0-31) U/L Alkaline Phosphatase 102 (39-117) U/L Total Protein 6.8 (6.5-8.0) g/dL Albumin 3.7 (3.5-5.0) g/dL Lipase 15 (8-78) U/L Urine Color Red A Urine Appearance Cloudy Urine pH 6.5 (5.0-9.0) Ur Specific [place] 1.020 (1.005-1.025) Urine Protein 100 (2+) H (Neg-Trace) mg/dL Urine Glucose (UA) Negative (Negative) mg/dL Urine Ketones Negative (Negative) mg/dL Urine Blood Large (3+) H (Negative) Urine Nitrite Negative (Negative) Ur Leukocyte Esterase Small (1+) H (Negative) Urine RBC >20 H (0-2) /HPF Urine WBC 21-50 H (0-5) /HPF Ur Squamous Epith Cells 0-2 (0-2) /HPF Urine Bacteria 2+ (None Seen) Hyaline Casts 0-2 (0-2) /LPF Urine Test (NEGATIVE) 12/11/22 Range/Units 03:58 WBC (4.8-10.8) X10*3/uL RBC (4.20-5.50) X10*6/uL Hgb (12.0-16.0) g/dl Hct (37.0-47.0) % MCV (80.0-98.0) fL MCH (27.0-33.0) pg MCHC (31.0-35.0) g/dl RDW (11.0-16.0) % Plt Count (160-400) X10*3/uL MPV (9.4-12.3) fL Immature Gran % (Auto) (0.0-0.4) % Neut % (Auto) (45-73) % Lymph % (Auto) (20-40) % [place] % (Auto) (2-11) % Eos % (Auto) (0-4) % Baso % (Auto) (0-2) % Lymph # (Auto) (1.2-4.9) X10*3/uL [place] # (Auto) (0.1-1.2) X10*3/uL Eos # (Auto) (0.0-0.4) X10*3/uL Baso # (Auto) (0.0-0.2) X10*3/uL Abs Immat Gran (auto) (0.00-0.03) X10*3/uL Absolute Neuts (auto) (2.0-8.3) x10*3/uL Absolute Nucleated RBC (0.0-0.012) X10*3/uL Nucleated RBC % (auto) (0.0-0.2) /100WBC Sodium (135-145) mmol/L Potassium (3.3-5.1) mmol/L Chloride (96-108) mmol/L Carbon Dioxide (22-29) mmol/L Anion Gap (12-20) BUN (9-16) mg/dL Creatinine (0.5-1.4) mg/dL Estim Creat Clear Calc Estimated GFR Random Glucose (60-115) mg/dL Calcium (8.4-10.2) mg/dL Total Bilirubin (0.0-1.0) mg/dL Direct Bilirubin (0.0-0.5) mg/dL AST (5-31) U/L ALT (0-31) U/L Alkaline Phosphatase (39-117) U/L Total Protein (6.5-8.0) g/dL Albumin (3.5-5.0) g/dL Lipase (8-78) U/L Urine Color Urine Appearance Urine pH (5.0-9.0) Ur Specific [place] (1.005-1.025) Urine Protein (Neg-Trace) mg/dL Urine Glucose (UA) (Negative) mg/dL Urine Ketones (Negative) mg/dL Urine Blood (Negative) Urine Nitrite (Negative) Ur Leukocyte Esterase (Negative) Urine RBC (0-2) /HPF Urine WBC (0-5) /HPF Ur Squamous Epith Cells (0-2) /HPF Urine Bacteria (None Seen) Hyaline Casts (0-2) /LPF Urine Test NEGATIVE (NEGATIVE) Independent Interpretation I performed an independent interpretation of an: CT Scan Interpretation: no acute abnormality appreciated, agree w/ radiology read Radiology Impression Discussion of test interpretation with radiology: I have reviewed the radiologist's reading. Radiologist Impression: ?CT/CT abdomen pelvis w IV con IMPRESSION: 1.? No CT evidence for acute abnormality within the abdomen or pelvis. Specifically, the appendix is normal. 2.? Single prominent lymph node posterior to the right common iliac vein which measures 1.5 cm in transverse dimension. This is a nonspecific finding. 3.? Mild diffuse bladder wall thickening, possibly secondary to the bladders relatively decompressed status. ? Fleischner guidelines were followed. External Record Review External record reviewed: Office record, Outpatient record, Prior outpatient labs and Prior outpatient radiology Prescription Management I considered prescription management with: Pain Medication and Other (antiemetic) Medications Administered Discontinued Medications Generic Name Dose Route Start Last Admin Trade Name Freq PRN Reason Stop Dose Admin Iohexol 100 ml 12/11/22 07:41 12/11/22 07:42 Iohexol 350 Mg/Ml 100 Ml Infus..Btl IV 12/11/22 07:42 85 ml ONCE ONE Administration Ketorolac Tromethamine 30 mg 12/11/22 06:40 12/11/22 06:49 Ketorolac Tromethamine 30 Mg/Ml Vial IVPUSH 12/11/22 06:41 30 mg ONCE ONE Administration Critical Care Time Critical Care Time Critical Care Time: No Discharge Plan Discharge Clinical Impression: Gastroenteritis Patient Disposition: Home, Self-Care Instructions: Gastroenteritis (DC) Additional Instructions: You lab workup today was unremarkable. Your CT scan showed a normal appendix and no cause for your pain. You most likely have a viral GI bug also known as gastroenteritis. Treatment is supportive care, symptoms usually resolve on their own in 48-72 hours. Recommend rest and plenty of oral hydration. Stick to a bland diet like soup and toast while you are not feeling well. Take the prescribed medication as needed for nausea. Recommend over the counter Pepto Bismol or Imodium for upset stomach and diarrhea. Follow up with your doctor as needed. If you develop new or worsening symptoms call 911 or come back to the ER for further evaluation. Prescriptions: New ondansetron 4 mg tablet,disintegrating 4 mg PO Q8H PRN (Reason: nausea and vomiting) Qty: 5 0RF No Action albuterol sulfate 90 mcg/actuation HFA aerosol inhaler 2 puff inhalation Q6H PRN (Reason: shortness of breath or wheezing) 30 Days Qty: 6.7 1RF Zafemy 150-35 mcg/24 hr patch weekly 1 patch topical
--- NOTE | 2022-12-11 06:54 | PC.NURSE ---
Medicated per Mar, Will continue monitor.
[2022-12-11 08:23] VITALS: BP 121/74; PULSE 57; RESP 17; TEMP 36.8; O2SAT 100
== END 2022-12-11 08:31 | disposition home or self-care (01) ==
PROVIDERS: Emergency Provider Emergency Medicine Emergency Medical Services
DX: K52.9 Noninfective gastroenteritis and colitis, unspecified (principal); R10.31 Right lower quadrant pain; R11.10 Vomiting, unspecified
CPT/HCPCS: 36415; 74177; 80053; 81001; 81025; 82248; 83690; 85025; 87086; 96374; 99284; J1885; Q9967

== ENCOUNTER 2023-02-07 15:08 | Outpatient (AMB) | payer MEDICAID, SELFPAY ==
--- NOTE | 2023-02-07 15:09 | A.OFFPC_ITS ---
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 Accompanied by: Self / Same As Patient Allergies No Known Allergies Allergy (Verified 02/07/23 15:17) Medication List - Last Reconciled 02/07/23 by Jazmine Thakur MD albuterol sulfate 90 mcg/actuation 2 puffs inhalation Q6H PRN 30 days NS Tobacco use date assessed: 07/24/22 Dental Screening Dental Screen Date: 02/07/23 Did you have a dental visit in the last 12 months?: Yes Did you have a dental problem in the last 6 months where you did not have access to dental care?: No Was dental information given to patient?: Patient has dentist HPI HPI Comments History of Present Illness Details This is a 23-year-old female that comes for her physical exam. Last Pap smear was 2021. Complains of diffuse joint pain and will see Rheumatology next month. Has severe allergic rhinitis and is waiting to see and allergies. [facility] Medical History Allergic reaction Hypovitaminosis Immunizations incomplete Mild recurrent major depression Neutropenia Panic attacks Rash Sacral pain Surgical History Hx laparoscopic cholecystectomy Family History Father Hypertension Mother No problems noted. Paternal Grandfather Hypertension Diabetes Paternal Uncle Stroke Brother No problems noted. Brother No problems noted. 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 Cb Vogel, Amelie La, Douglas Rodriguez and colleagues, with an educational leora from [employer]. Review of Systems Const All systems reviewed & are unremarkable except as noted in HPI and below Eyes Reports no additional complaints, Denies change in vision and Denies other visual disturbances Card Denies chest pain at rest, Denies chest pain with activity, Denies edema, Denies irregular heart rhythm, Denies claudication, Denies dyspnea, Denies dyspnea on exertion, Denies orthopnea, Denies paroxysmal nocturnal dyspnea and Denies slow heart rate Resp Denies cough, Denies dyspnea and Denies dyspnea on exertion GI Denies abdominal pain, Denies change in bowel habits, Denies excessive flatus, Denies nausea and Denies vomiting Denies urinary incontinence, Denies urinary hesitancy and Denies urinary urgency Musc Denies abnormal gait, Denies atrophy, Denies deformity and Denies limited range of motion Skin/Breast Denies bleeding lesions, Denies changing lesions and Denies rash Neuro Denies abnormal gait and Denies lack of coordination Physical exam (Primary Care) Vital Signs: Last Vital Signs BP 122/80 02/07/23 15:10 BMI result Body Mass Index 32.7 Tobacco/Smoking Status: Tobacco use Status Tobacco use date assessed 07/24/22 02/07/23 15:13 Patient Tobacco Use Status Never used Tobacco 02/07/23 15:13 e-Cigarette/Vaping Use Never Used 02/07/23 15:13 Thrive Assessment: Date of Thrive Assessment Date Thrive assessed 07/24/22 02/07/23 15:13 Const Orientation/consciousness: patient oriented x3 HENMT Head: Yes normal to inspection, Yes normocephalic and Yes atraumatic Ears: external ears normal Eyes General: appearance normal, both eyes and all related structures Eyelids: Yes eyelids normal Conjunctivae: conjunctivae normal Neck Neck: Yes normal visual inspection and Yes supple Resp Effort & Inspection: normal respiratory effort Auscultation: clear to auscultation bilaterally Cardio Jugular venous distension: no JVD Rate: regular rate Rhythm: regular rhythm Heart sounds: S1 normal heart sound present and S2 normal heart sound present GI Inspection: Yes normal to inspection Palpation (GI): Soft to palpation and nontender Auscultation: normal bowel sounds Skin General skin exam: no rashes or lesions noted Neuro General: patient oriented x3 and no focal motor deficits Extrem General: Yes full ROM Psych Appearance: grossly normal Assessment and Plan Assessment & Plan (1) Physical exam: Code(s): Z00.00 - Encounter for general adult medical examination without abnormal findings Plan: Repeat in a year. Orders: Orders Comprehensive [place]. Panel Fast Today Z00.00 - Encounter for general adult medical examination without abnormal findings IRON PROFILE Today D64.9 - Anemia, unspecified Lipid Panel Today Z00.00 - Encounter for general adult medical examination without abnormal findings Complete Blood Count Auto Diff Today D64.9 - Anemia, unspecified Referrals Allergy & Immunology Referral T78.40XA - Allergy, unspecified, initial encounter Coding Level of Care Code Est Pt Prev Care 18-39y(49122) Diagnoses Physical exam Z00.00 Time Spent (min) 31
[2023-02-07 15:10] VITALS: BP 122/80; BMI 32.7
== END 2023-02-07 15:27 | disposition home or self-care (01) ==
PROVIDERS: Visit Provider Internal Medicine
DX: Z00.00 Encounter for general adult medical examination without abnormal findings (principal)
CPT/HCPCS: 99395

== ENCOUNTER 2023-02-28 09:14 | Outpatient (AMB) | payer MEDICAID, SELFPAY ==
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
[2023-02-28 09:21] VITALS: BP 120/72; TEMP 36.7; BMI 32.5
== END 2023-02-28 09:47 | disposition home or self-care (01) ==
PROVIDERS: PCP Internal Medicine; Visit Provider Student in an Organized Health Care Education/Training Program
DX: M13.80 Other specified arthritis, unspecified site (principal)
CPT/HCPCS: 99214

== ENCOUNTER 2023-02-28 09:14 | Outpatient (REF) | payer MEDICAID, SELFPAY ==
[2023-02-28 10:14] LABS: MANUAL DIFF FLAG NO
[2023-02-28 10:34] LABS: Basophils Percent Auto 0.4 % (0-2); Eosinophils Absolute Auto 0.1 X10*3/uL (0.0-0.4); Eosinophils Percent Auto 0.5 % (0-4); Hematocrit 37.9 % (37.0-47.0); Hemoglobin 12.2 g/dl (12.0-16.0); Imm Gran Abs Auto 0.03 X10*3/uL (0.00-0.03); Imm Gran Pct Auto 0.3 % (0.0-0.4); Lymphocytes Absolute Auto 1.8 X10*3/uL (1.2-4.9); Lymphocytes Percent Auto 19.4 % (20-40); Mean Corpuscular HGB Conc 32.2 g/dl (31.0-35.0); Mean Corpuscular Hemoglobin 25.5 pg (27.0-33.0); Mean Corpuscular Volume 79.1 fL (80.0-98.0); Mean Platelet Volume 10.5 fL (9.4-12.3); Monocytes Absolute Auto 0.7 X10*3/uL (0.1-1.2); Monocytes Percent Auto 7.7 % (2-11); Neutrophils Absolute Auto 6.7 x10*3/uL (2.0-8.3); Neutrophils Percent Auto 71.7 % (45-73); Platelet Count 319 X10*3/uL (160-400); Red Blood Count 4.79 X10*6/uL (4.20-5.50); Red Cell Distribution Width 13.9 % (11.0-16.0); White Blood Count 9.4 X10*3/uL (4.8-10.8)
[2023-02-28 11:35] LABS: Alanine Aminotransferase 12 U/L (0-31); Albumin Level 4.3 g/dL (3.5-5.0); Alkaline Phosphatase 104 U/L (39-117); Anion Gap 14 (12-20); Aspartate Amino Transferase 15 U/L (5-31); Bilirubin Total 0.5 mg/dL (0.0-1.0); Blood Urea Nitrogen 12 mg/dL (9-16); Calcium 9.6 mg/dL (8.4-10.2); Carbon Dioxide 24 mmol/L (22-29); Chloride 106 mmol/L (96-108); Cholesterol 113 mg/dL (<200); Estimated Glomerular Filt Rate > 60; Glucose Fasting 85 mg/dL (60-99); HDL Cholesterol 39 mg/dL (>40); Iron 36 mcg/dL (30-160); LDL Cholesterol Calculated 65 mg/dL (<100); Percent Iron Saturation 9 % (15-50); Sodium 140 mmol/L (135-145); Total Iron Binding Capacity 388 mcg/dL (228-428); Total Protein 8.1 g/dL (6.5-8.0); Triglycerides 48 mg/dL (<150); Unsaturated Iron Binding 352 ug/dL
[2023-02-28 11:52] LABS: Vitamin D 25-OH Total 13.7 ng/mL (>30)
== END 2023-02-28 09:15 | disposition home or self-care (01) ==
LOC: HO.LAB 09:14
PROVIDERS: Nurse Practitioner Family; PCP Internal Medicine; Visit Provider Internal Medicine
DX: Z00.00 Encounter for general adult medical examination without abnormal findings (principal); D64.9 Anemia, unspecified; E55.9 Vitamin D deficiency, unspecified; M13.80 Other specified arthritis, unspecified site
CPT/HCPCS: 36415; 80053; 80061; 82306; 83540; 85025; 99212

== ENCOUNTER 2023-04-05 14:36 | Outpatient (AMB) | payer MEDICAID, SELFPAY ==
[2023-04-05 14:43] VITALS: BP 108/62; PULSE 102; TEMP 36.7; O2SAT 97; BMI 32.6
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
== END 2023-04-05 15:10 | disposition home or self-care (01) ==
PROVIDERS: PCP Internal Medicine; Visit Provider Student in an Organized Health Care Education/Training Program
DX: M13.80 Other specified arthritis, unspecified site (principal); Z79.631 Long term (current) use of antimetabolite agent
CPT/HCPCS: 99214

== ENCOUNTER → 2023-04-05 14:36 | Outpatient (BNVA) | payer MEDICAID, SELFPAY | PROVIDERS: PCP Internal Medicine; Visit Provider Student in an Organized Health Care Education/Training Program | DX: M13.80 Other specified arthritis, unspecified site (principal); Z79.631 Long term (current) use of antimetabolite agent | CPT/HCPCS: 99212 ==

== ENCOUNTER 2023-06-17 12:08 | Outpatient (REF) | payer MEDICAID, SELFPAY ==
[2023-06-17 12:22] LABS: MANUAL DIFF FLAG NO
[2023-06-17 13:00] LABS: Basophils Percent Auto 0.5 % (0-2); Eosinophils Absolute Auto 0.2 X10*3/uL (0.0-0.4); Eosinophils Percent Auto 3.6 % (0-4); Hematocrit 37.3 % (37.0-47.0); Hemoglobin 11.8 g/dl (12.0-16.0); Imm Gran Abs Auto 0.01 X10*3/uL (0.00-0.03); Imm Gran Pct Auto 0.2 % (0.0-0.4); Lymphocytes Absolute Auto 1.7 X10*3/uL (1.2-4.9); Lymphocytes Percent Auto 30.3 % (20-40); Mean Corpuscular HGB Conc 31.6 g/dl (31.0-35.0); Mean Corpuscular Hemoglobin 25.3 pg (27.0-33.0); Mean Platelet Volume 10.7 fL (9.4-12.3); Monocytes Absolute Auto 0.6 X10*3/uL (0.1-1.2); Neutrophils Absolute Auto 3.1 x10*3/uL (2.0-8.3); Neutrophils Percent Auto 55.4 % (45-73); Platelet Count 359 X10*3/uL (160-400); Red Blood Count 4.66 X10*6/uL (4.20-5.50); Red Cell Distribution Width 14.2 % (11.0-16.0); White Blood Count 5.5 X10*3/uL (4.8-10.8)
[2023-06-17 14:18] LABS: Alanine Aminotransferase 22 U/L (0-31); Alkaline Phosphatase 113 U/L (39-117); Aspartate Amino Transferase 16 U/L (5-31); Bilirubin Total 0.3 mg/dL (0.0-1.0); Blood Urea Nitrogen 17 mg/dL (9-16); C Reactive Protein 1.71 mg/dL (< or = 0.50); Calcium 9.6 mg/dL (8.4-10.2); Estimated Glomerular Filt Rate > 60; Glucose Random 97 mg/dL (60-115); Total Protein 7.3 g/dL (6.5-8.0)
[2023-06-17 14:27] LABS: Vitamin D 25-OH Total 9.7 ng/mL (>30)
[2023-06-17 14:33] LABS: Anion Gap 11 (12-20); Carbon Dioxide 26 mmol/L (22-29); Chloride 106 mmol/L (96-108); Potassium 4.2 mmol/L (3.3-5.1); Sodium 139 mmol/L (135-145)
== END 2023-06-17 12:09 | disposition home or self-care (01) ==
LOC: HO.LAB 12:08
PROVIDERS: Nurse Practitioner Family; PCP Internal Medicine; Visit Provider Student in an Organized Health Care Education/Training Program
DX: M06.09 Rheumatoid arthritis without rheumatoid factor, multiple sites (principal); R79.89 Other specified abnormal findings of blood chemistry; Z51.81 Encounter for therapeutic drug level monitoring; Z79.631 Long term (current) use of antimetabolite agent
CPT/HCPCS: 36415; 80053; 82306; 85025; 85652; 86140; 99212

== ENCOUNTER 2023-06-17 13:41 | Outpatient (AMB) | payer MEDICAID, SELFPAY ==
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
[2023-06-17 13:44] VITALS: BP 104/62; PULSE 79; TEMP 36.3; O2SAT 98; BMI 30.8
== END 2023-06-17 13:58 | disposition home or self-care (01) ==
PROVIDERS: PCP Internal Medicine; Visit Provider Student in an Organized Health Care Education/Training Program
DX: M13.80 Other specified arthritis, unspecified site (principal); Z51.81 Encounter for therapeutic drug level monitoring; Z79.899 Other long term (current) drug therapy
CPT/HCPCS: 99214

== ENCOUNTER 2023-08-31 08:48 | Outpatient (REF) | payer MEDICAID, SELFPAY ==
[2023-08-31 09:12] LABS: MANUAL DIFF FLAG NO
[2023-08-31 09:16] LABS: Basophils Percent Auto 0.5 % (0-2); Eosinophils Absolute Auto 0.1 X10*3/uL (0.0-0.4); Eosinophils Percent Auto 2.2 % (0-4); Hematocrit 36.6 % (37.0-47.0); Imm Gran Abs Auto 0.01 X10*3/uL (0.00-0.03); Imm Gran Pct Auto 0.2 % (0.0-0.4); Lymphocytes Absolute Auto 1.7 X10*3/uL (1.2-4.9); Lymphocytes Percent Auto 29.2 % (20-40); Mean Corpuscular HGB Conc 32.8 g/dl (31.0-35.0); Mean Corpuscular Hemoglobin 26.4 pg (27.0-33.0); Mean Corpuscular Volume 80.4 fL (80.0-98.0); Mean Platelet Volume 9.4 fL (9.4-12.3); Monocytes Absolute Auto 0.5 X10*3/uL (0.1-1.2); Monocytes Percent Auto 8.2 % (2-11); Neutrophils Absolute Auto 3.5 x10*3/uL (2.0-8.3); Neutrophils Percent Auto 59.7 % (45-73); Platelet Count 313 X10*3/uL (160-400); Red Blood Count 4.55 X10*6/uL (4.20-5.50); Red Cell Distribution Width 14.8 % (11.0-16.0); White Blood Count 5.8 X10*3/uL (4.8-10.8)
[2023-08-31 09:44] LABS: Alanine Aminotransferase 12 U/L (0-31); Albumin Level 3.7 g/dL (3.5-5.0); Alkaline Phosphatase 90 U/L (39-117); Anion Gap 11 (12-20); Aspartate Amino Transferase 12 U/L (5-31); Bilirubin Total 0.3 mg/dL (0.0-1.0); Blood Urea Nitrogen 15 mg/dL (9-16); C Reactive Protein 1.59 mg/dL (< or = 0.50); Calcium 9.4 mg/dL (8.4-10.2); Carbon Dioxide 30 mmol/L (22-29); Chloride 105 mmol/L (96-108); Estimated Glomerular Filt Rate > 60; Glucose Random 106 mg/dL (60-115); Potassium 4.4 mmol/L (3.3-5.1); Sodium 142 mmol/L (135-145); Total Protein 7.2 g/dL (6.5-8.0)
[2023-08-31 10:04] LABS: Erythrocyte Sedimentation Rate 10 MM/HR (0-20)
== END 2023-08-31 08:49 | disposition home or self-care (01) ==
LOC: HO.LAB 08:48
PROVIDERS: Visit Provider Student in an Organized Health Care Education/Training Program
DX: Z51.81 Encounter for therapeutic drug level monitoring (principal); Z79.899 Other long term (current) drug therapy
CPT/HCPCS: 36415; 80053; 85025; 85652; 86140

== ENCOUNTER 2023-09-09 07:39 | Outpatient (AMB) | payer SELFPAY ==
[2023-09-09 07:43] VITALS: BP 102/68; PULSE 72; TEMP 36.1; BMI 33.3
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
== END 2023-09-09 08:02 | disposition home or self-care (01) ==
PROVIDERS: PCP Internal Medicine; Visit Provider Student in an Organized Health Care Education/Training Program
DX: M06.00 Rheumatoid arthritis without rheumatoid factor, unspecified site (principal); Z79.899 Other long term (current) drug therapy
CPT/HCPCS: 99214

== ENCOUNTER → 2023-09-09 07:39 | Outpatient (BNVA) | payer MEDICAID, SELFPAY | PROVIDERS: PCP Internal Medicine; Visit Provider Student in an Organized Health Care Education/Training Program | DX: M06.00 Rheumatoid arthritis without rheumatoid factor, unspecified site (principal); Z79.899 Other long term (current) drug therapy | CPT/HCPCS: 99212 ==

== ENCOUNTER 2023-12-09 07:28 | Outpatient (REF) | payer OTHER, SELFPAY ==
[2023-12-09 07:40] LABS: MANUAL DIFF FLAG NO
[2023-12-09 08:30] LABS: Basophils Absolute Auto 0.1 X10*3/uL (0.0-0.2); Basophils Percent Auto 0.7 % (0-2); Eosinophils Absolute Auto 0.2 X10*3/uL (0.0-0.4); Eosinophils Percent Auto 2.1 % (0-4); Hematocrit 38.4 % (37.0-47.0); Hemoglobin 12.4 g/dl (12.0-16.0); Imm Gran Abs Auto 0.03 X10*3/uL (0.00-0.03); Imm Gran Pct Auto 0.4 % (0.0-0.4); Lymphocytes Absolute Auto 2.2 X10*3/uL (1.2-4.9); Lymphocytes Percent Auto 29.4 % (20-40); Mean Corpuscular HGB Conc 32.3 g/dl (31.0-35.0); Mean Corpuscular Hemoglobin 26.1 pg (27.0-33.0); Mean Corpuscular Volume 80.7 fL (80.0-98.0); Mean Platelet Volume 10.1 fL (9.4-12.3); Monocytes Absolute Auto 0.9 X10*3/uL (0.1-1.2); Monocytes Percent Auto 11.4 % (2-11); Neutrophils Absolute Auto 4.2 x10*3/uL (2.0-8.3); Platelet Count 343 X10*3/uL (160-400); Red Blood Count 4.76 X10*6/uL (4.20-5.50); Red Cell Distribution Width 13.5 % (11.0-16.0); White Blood Count 7.6 X10*3/uL (4.8-10.8)
[2023-12-09 08:55] LABS: Alanine Aminotransferase 16 U/L (0-31); Albumin Level 3.9 g/dL (3.5-5.0); Alkaline Phosphatase 111 U/L (39-117); Anion Gap 11 (12-20); Aspartate Amino Transferase 12 U/L (5-31); Bilirubin Total 0.3 mg/dL (0.0-1.0); Blood Urea Nitrogen 16 mg/dL (9-16); C Reactive Protein 0.84 mg/dL (< or = 0.50); Calcium 9.3 mg/dL (8.4-10.2); Carbon Dioxide 24 mmol/L (22-29); Chloride 107 mmol/L (96-108); Estimated Glomerular Filt Rate > 60; Glucose Random 120 mg/dL (60-115); Potassium 4.1 mmol/L (3.3-5.1); Sodium 138 mmol/L (135-145); Total Protein 7.3 g/dL (6.5-8.0)
[2023-12-09 09:05] LABS: Erythrocyte Sedimentation Rate 10 MM/HR (0-20)
== END 2023-12-09 07:29 | disposition home or self-care (01) ==
LOC: HO.LAB 07:28
PROVIDERS: PCP Internal Medicine; Visit Provider Student in an Organized Health Care Education/Training Program
DX: M13.80 Other specified arthritis, unspecified site (principal)
CPT/HCPCS: 36415; 80053; 85025; 85652; 86140

== ENCOUNTER 2023-12-09 07:41 | Outpatient (AMB) | payer OTHER, SELFPAY ==
[2023-12-09 07:47] VITALS: BP 122/64; BMI 34.7
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
== END 2023-12-09 07:58 | disposition home or self-care (01) ==
PROVIDERS: PCP Internal Medicine; Visit Provider Student in an Organized Health Care Education/Training Program
DX: M06.00 Rheumatoid arthritis without rheumatoid factor, unspecified site (principal); Z79.899 Other long term (current) drug therapy
CPT/HCPCS: 99214

== ENCOUNTER 2023-12-23 20:25 | Emergency (ER) | payer OTHER, SELFPAY ==
--- NOTE | ~2023-12-23 | US_ITS ---
EXAMINATION: US OBSTETRICAL ULTRASOUND CLINICAL INFORMATION: Pain, bleeding. COMPARISON: CT abdomen/pelvis 12/11/2022. LMP: 11/14/2023. Gestational age by maternal dates is 5 weeks and 4 days. Estimated date of delivery by maternal dates is 08/20/2024. TECHNIQUE: Ultrasound of the maternal pelvis is performed using transabdominal and transvaginal transducers. Transvaginal imaging is performed due to inadequate visualization transabdominally. M-mode Doppler is also performed. FINDINGS: Evaluation is limited due to patient's pain. There is a single intrauterine gestational sac with visible yolk sac, embryo/fetus, and cardiac activity. There is no significant subchorionic hemorrhage or hematoma. HR: 138 beats per minute. CRL (crown rump length): 0.48 cm (6 weeks +/- 4 days). DEN (estimated date of delivery): 08/15/2024 +/- 4 days. MATERNAL ADNEXA: The right ovary is not well seen. The left ovary is normal in morphology measuring approximately 2.6 x 2 x 2.2 cm (6 mL) with the presence of a 1.4 x 1.3 x 1.1 cm simple-appearing cyst for which no imaging follow-up is recommended. There is preserved flow on color Doppler to the right and left adnexa. No discrete adnexal mass. No significant amount of free fluid. US/US OB pelvic and transvaginal IMPRESSION: 1. Single intrauterine gestation with ultrasound gestational age of 6 weeks +/- 4 days. 2. Estimated date of delivery is 08/15/2024 +/- 4 days. 3. No acute sonographic abnormality.
[2023-12-23 20:26] VITALS: BP 127/85; PULSE 82; RESP 18; TEMP 36.5; O2SAT 99; BMI 33.3
--- NOTE | 2023-12-23 20:29 | ED.GENADULT ---
HPI - General Adult General Chief complaint: Abdominal Pain Stated complaint: 8 weeks not feeling well Time Seen by Provider: 12/23/23 21:03 Source: patient and old records reviewed Mode of arrival: ambulatory Limitations: no limitations History of Present Illness ED Provider: DUANE FREITAS narrative: 23 yo female with PMH of depression, RA, anxiety, G2 at least she will not give me a full history she states she is not comfortable LMP November 13 went to [place] on for dehydration n/v and told she was since then c/o nausea, vomiting and spotting. Had some more bleeding on Saturday but that has stopped. She was not sent home with nausea medications. MD complaint: pelvic pain, spotting Onset (ago): day(s) (few) Location: pelvis Radiation: non-radiation Severity: moderate Quality: dull Pain Consistency: intermittent Relieving factors: none Exacerbating factors: movement Associated symptoms: loss of appetite, malaise and nausea/vomiting Treatments prior to arrival: none Related Data Previous Rx's ?Medication ?Instructions ?Recorded albuterol sulfate 90 mcg/actuation 2 puff inhalation Q6H PRN 04/19/22 aerosol inhaler shortness of breath or wheezing 30 days #6.7 grams prednisone 5 mg tablet 5 mg PO BID Pain #30 tabs 12/09/23 adalimumab-adaz 40 mg/0.4 mL 40 mg (0.4 mL) subcut Q14D #0.8 mL 12/19/23 subcutaneous pen injector metoclopramide HCl 10 mg tablet 10 mg PO Q6H PRN nausea and 12/23/23 (Reglan) vomiting #30 tabs promethazine 25 mg rectal 25 mg ME Q6H PRN nausea and 12/23/23 suppository vomiting #12 ea Allergies Allergy/AdvReac Type Severity Reaction Status Date / Time sulfasalazine AdvReac Intermediate Nausea and Verified 12/23/23 20:31 Vomiting Review of Systems Review of Systems: Constitutional : No Fever, No Chills ENT/Mouth : No sore throat, No Rhinorrhea Eyes: No Eye Pain, No Redness Cardiovascular : No Chest Pain, No SOB Respiratory : No Cough, No Sputum, No Wheezing Gastrointestinal : positive Nausea, pos Vomiting, No Diarrhea, positive abdominal pain, Genitourinary : positive irregular bleeding, No Dysuria, No Urinary Frequency, positive pelvic pain Musculoskeletal : No Myalgias Skin : No rash Neuro : No Weakness, No Headache Psych : No Anxiety/Panic, No Depression Heme/Lymph: No bruising, No Lymphadenopathy Endocrine : No Polyuria, No Polydipsia All other systems reviewed and are negative [facility] Past Medical History Attestation statement: The following information was validated with the patient. Source: old records reviewed Medical History Rash Sacral pain Mild recurrent major depression Panic attacks Allergic reaction Immunizations incomplete Neutropenia Hypovitaminosis Surgical History Hx laparoscopic cholecystectomy Family History Family History Father Hypertension Mother No problems noted. Paternal Grandfather Hypertension Diabetes Paternal Uncle Stroke Brother No problems noted. Brother No problems noted. 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 Oriented X3. No acute distress. Eyes: Pupils equal, round and reactive to light. ENT: Pharynx mild dry MM Neck: Normal inspection. Neck supple. CVS: Normal heart rate and rhythm. Pulses normal. Respiratory: No respiratory distress. Breath sounds normal. Abdomen: Soft and mild lower abdominal ttp no rebound or guarding Skin: Skin warm and dry. Normal skin color. Normal skin turgor. Extremities: No lower extremity edema. No calf ttp Neuro: Oriented X 3. No motor deficit. No sensory deficit. Course Course Course Narrative: RME performed by Nasra Wiggins PA-C. Patient is a 23 year old assigned female at presenting to the emergency department with vaginal spotting and being 8 weeks . Detailed physical exam and review of systems are deferred to the audit practice intern. Labs and imaging ordered. Patient placed back in the waiting room pending room availability and results. Reevaluation(s) Reevaluation #1: after mom left she is G2PO just had recent and didn't want mom to know Medications Administered Discontinued Medications Generic Name Dose Route Start Last Admin Trade Name Freq PRN Reason Stop Dose Admin Diphenhydramine HCl 25 mg 12/23/23 21:20 12/23/23 21:40 Diphenhydramine Hcl 50 Mg/Ml Vial IVPUSH 12/23/23 21:21 25 mg ONCE ONE Administration Sodium Chloride 1,000 mls @ 999 mls/hr 12/23/23 21:20 12/23/23 23:30 Ns IV 12/23/23 22:20 Infused .Q1H1M ONE Infusion Sodium Chloride 1,000 mls @ 999 mls/hr 12/23/23 21:20 12/23/23 23:30 Ns IV 12/23/23 22:20 Infused .Q1H1M ONE Infusion Metoclopramide HCl 10 mg 12/23/23 21:20 12/23/23 21:40 Metoclopramide Hcl 10 Mg/2 Ml Vial IVPUSH 12/23/23 21:21 10 mg ONCE ONE Administration Medical Decision Making Medical Decision Making [facility] Narrative: 23 yo female with PMH of depression, RA, anxiety here with c/o + test persistent n/v not on medications at home and spotting no clots and no luis f blood at this time will need labs, quant, blood type and US to confirm . Differential Diagnosis Differential Diagnoses: The differential diagnosis associated with the presentation includes threatened ab, miscarriage Admission/Observation Consideration of admission/observation: Escalation of care including admission/observation considered feels better stable for DC Lab Data [facility] Lab Attestation statement: I reviewed the patient's lab results. 12/23/23 21:36 12/23/23 21:36 Labs: Lab Results 12/23/23 12/23/23 12/23/23 Range/Units 21:36 22:25 22:33 WBC 10.0 (4.8-10.8) X10*3/uL RBC 4.85 (4.20-5.50) X10*6/uL Hgb 12.8 (12.0-16.0) g/dl Hct 37.9 (37.0-47.0) % MCV 78.1 L (80.0-98.0) fL MCH 26.4 L (27.0-33.0) pg MCHC 33.8 (31.0-35.0) g/dl RDW 13.3 (11.0-16.0) % Plt Count 325 (160-400) X10*3/uL MPV 9.9 (9.4-12.3) fL Immature Gran % (Auto) 0.4 (0.0-0.4) % Neut % (Auto) 71.0 (45-73) % Lymph % (Auto) 18.1 L (20-40) % [place] % (Auto) 10.0 (2-11) % Eos % (Auto) 0.1 (0-4) % Baso % (Auto) 0.4 (0-2) % Lymph # (Auto) 1.8 (1.2-4.9) X10*3/uL [place] # (Auto) 1.0 (0.1-1.2) X10*3/uL Eos # (Auto) 0.0 (0.0-0.4) X10*3/uL Baso # (Auto) 0.0 (0.0-0.2) X10*3/uL Abs Immat Gran (auto) 0.04 H (0.00-0.03) X10*3/uL Absolute Neuts (auto) 7.1 (2.0-8.3) x10*3/uL Absolute Nucleated RBC 0.000 (0.0-0.012) X10*3/uL Nucleated RBC % (auto) 0.0 (0.0-0.2) /100WBC Sodium 138 (135-145) mmol/L Potassium 3.5 (3.3-5.1) mmol/L Chloride 104 (96-108) mmol/L Carbon Dioxide 22 (22-29) mmol/L Anion Gap 16 (12-20) BUN 12 (9-16) mg/dL Creatinine 0.72 (0.5-1.4) mg/dL Estim Creat Clear Calc 149.9 Estimated GFR > 60 Random Glucose 100 (60-115) mg/dL Calcium 10.4 H D (8.4-10.2) mg/dL Magnesium 2.0 (1.6-2.6) mg/dL Total Bilirubin 0.8 (0.0-1.0) mg/dL AST 22 (5-31) U/L ALT 26 (0-31) U/L Alkaline Phosphatase 94 (39-117) U/L Total Protein 8.3 H (6.5-8.0) g/dL Albumin 4.6 (3.5-5.0) g/dL Beta HCG, Quant 57384 mIU/mL Urine Color Yellow Urine Appearance Clear Urine pH 7.0 (5.0-9.0) Ur Specific [place] 1.010 (1.005-1.025) Urine Protein Negative (Neg-Trace) mg/dL Urine Glucose (UA) Negative (Negative) mg/dL Urine Ketones Trace (Negative) mg/dL Urine Blood Large (3+) H (Negative) Urine Nitrite Negative (Negative) Ur Leukocyte Esterase Small (1+) H (Negative) Urine RBC 11-20 H (0-2) /HPF Urine WBC 0-5 (0-5) /HPF Ur Squamous Epith Cells 6-10 (0-2) /HPF Urine Bacteria None Seen (None Seen) Hyaline Casts 0-2 (0-2) /LPF Blood Type O Positive Antibody Screen NEGATIVE Independent Interpretation I performed an independent interpretation of an: Ultrasound (+ IUP) Radiology Impression Discussion of test interpretation with radiology: I have reviewed the radiologist's reading. Independent Historian Clinical information obtained from an independent historian. History obtained from or confirmed by: Parent External Record Review External record reviewed: Inpatient record Prescription Management I considered prescription management with: Other Discharge Plan Discharge Clinical Impression: Hyperemesis, Threatened miscarriage Patient Disposition: Home, Self-Care Instructions: Threatened Miscarriage (ED), Acute Nausea and Vomiting (ED) Additional Instructions: [place] [address] US shows confirmed you will be sick and continue to vomit you need to discuss with your doctors what is best for you and your health please follow up with your providers return for any worsening symptoms - increased bleeding, unable to eat or drink or any other concerns you could be early miscarriage there is no way of causing this or stopping this - return for worsening bleeding. would repeat hormone level with your doctor in 72 hours The left ovary is normal in morphology measuring approximately 2.6 x 2 x 2.2 cm (6 mL) with the presence of a 1.4 x 1.3 x 1.1 cm simple-appearing cyst for which no imaging follow-up is recommended. There is preserved flow on color Doppler to the right and left adnexa. No discrete adnexal mass. No significant amount of free fluid. US/US OB pelvic and transvaginal IMPRESSION: 1. Single intrauterine gestation with ultrasound gestational age of 6 weeks +/- 4 days. 2. Estimated date of delivery is 08/15/2024 +/- 4 days. 3. No acute sonographic abnormality. Prescriptions: New metoclopramide HCl [Reglan] 10 mg tablet 10 mg PO Q6H PRN (Reason: nausea and vomiting) Qty: 30 0RF promethazine 25 mg suppository 25 mg ME Q6H PRN (Reason: nausea and vomiting) Qty: 12 0RF No Action albuterol sulfate 90 mcg/actuation HFA aerosol inhaler 2 puff inhalation Q6H PRN (Reason: shortness of breath or wheezing) 30 Days Qty: 6.7 1RF adalimumab-adaz 40 mg/0.4 mL pen injector 40 mg subcut Q14D Qty: 0.8 2RF prednisone 5 mg tablet 5 mg PO BID Qty: 30 0RF Stand Alone Forms: Work/School Release Print Language: [place] Islander
[2023-12-23] MEDS: 0.9 % Sodium Chloride 1,000 ML 999 ML IV ×2 (21:40)
[2023-12-23] MEDS: diphenhydrAMINE HCL 50 MG/ML VIAL 25 MG IVPUSH (21:40)
[2023-12-23] MEDS: Metoclopramide HCl 10 MG/2 ML VIAL IVPUSH (21:40)
[2023-12-23 21:42] LABS: Basophils Percent Auto 0.4 % (0-2); Eosinophils Percent Auto 0.1 % (0-4); Hematocrit 37.9 % (37.0-47.0); Hemoglobin 12.8 g/dl (12.0-16.0); Imm Gran Abs Auto 0.04 X10*3/uL (0.00-0.03); Imm Gran Pct Auto 0.4 % (0.0-0.4); Lymphocytes Absolute Auto 1.8 X10*3/uL (1.2-4.9); Lymphocytes Percent Auto 18.1 % (20-40); MANUAL DIFF FLAG NO; Mean Corpuscular HGB Conc 33.8 g/dl (31.0-35.0); Mean Corpuscular Hemoglobin 26.4 pg (27.0-33.0); Mean Corpuscular Volume 78.1 fL (80.0-98.0); Mean Platelet Volume 9.9 fL (9.4-12.3); Neutrophils Absolute Auto 7.1 x10*3/uL (2.0-8.3); Platelet Count 325 X10*3/uL (160-400); Red Blood Count 4.85 X10*6/uL (4.20-5.50); Red Cell Distribution Width 13.3 % (11.0-16.0)
[2023-12-23 22:04] LABS: Alanine Aminotransferase 26 U/L (0-31); Albumin Level 4.6 g/dL (3.5-5.0); Alkaline Phosphatase 94 U/L (39-117); Anion Gap 16 (12-20); Aspartate Amino Transferase 22 U/L (5-31); Bilirubin Total 0.8 mg/dL (0.0-1.0); Blood Urea Nitrogen 12 mg/dL (9-16); Calcium 10.4 mg/dL (8.4-10.2); Carbon Dioxide 22 mmol/L (22-29); Chloride 104 mmol/L (96-108); Creatinine Clr Calc Pharmacy 149.9; Estimated Glomerular Filt Rate > 60; Glucose Random 100 mg/dL (60-115); Potassium 3.5 mmol/L (3.3-5.1); Sodium 138 mmol/L (135-145); Total Protein 8.3 g/dL (6.5-8.0)
[2023-12-23 22:41] LABS: Appearance Urine Clear; Color Urine Yellow; Glucose Urine UA Negative (Negative); Leukocyte Esterase Urine Small (1+) (Negative); Nitrite Urine Negative (Negative); UMIC TRIGGER UACC YES; Urine Blood Large (3+) (Negative); Urine Ketones Trace mg/dL (Negative); Urine Protein Negative (Neg-Trace)
[2023-12-23 22:56] LABS: Bacteria Urine None Seen (None Seen); Hyaline Casts Urine 0-2 /LPF (0-2); UACC Culture Trigger YES; WBC Urine 0-5 /HPF (0-5)
[2023-12-24] VITALS: BP 99/60; PULSE 69; RESP 12; TEMP 36.4; O2SAT 98
[2023-12-24 00:44] VITALS: BP 99/60; PULSE 69; RESP 12; TEMP 36.4; O2SAT 98
== END 2023-12-24 00:45 | disposition home or self-care (01) ==
PROVIDERS: Physician Assistant Medical; Emergency Provider Emergency Medicine; PCP Internal Medicine
DX: O20.0 Threatened abortion (principal); O21.0 Mild hyperemesis gravidarum; O26.851 Spotting complicating pregnancy, first trimester; O99.321 Drug use complicating pregnancy, first trimester; F12.90 Cannabis use, unspecified, uncomplicated; Z3A.08 8 weeks gestation of pregnancy
CPT/HCPCS: 36415; 76801; 76817; 80053; 81001; 83735; 84702; 85025; 86850; 86900; 86901; 87086; 96361; 96374; 96375; 99284; J1200; J2765

== ENCOUNTER 2023-12-24 11:32 | Outpatient (REF) | payer OTHER, SELFPAY ==
[2023-12-26 21:43] LABS: TS Negative Control Passed; TS Panel A 0; TS Panel B 0; TS Positive Control Passed; TSpotTB Negative (Negative)
== END 2023-12-24 11:33 | disposition home or self-care (01) ==
LOC: HO.LAB 11:32
PROVIDERS: PCP Internal Medicine; Visit Provider Student in an Organized Health Care Education/Training Program
DX: Z11.7 Encounter for testing for latent tuberculosis infection (principal)
CPT/HCPCS: 36415; 86481

== ENCOUNTER 2023-12-30 13:08 | Outpatient (REF) | payer OTHER, SELFPAY ==
[2023-12-31 01:47] LABS: CT PCR NOT DETECTED (Not Detect.); NG PCR NOT DETECTED (Not Detect.)
[2023-12-31 09:32] LABS: Bacterial Vaginosis PCR POSITIVE (Negative); Candida Group PCR NOT DETECTED (Not Detect); Candida glab krusei PCR NOT DETECTED (Not Detect); Trichomonas vaginalis PCR NOT DETECTED (Not Detect)
== END 2023-12-30 13:09 | disposition home or self-care (01) ==
LOC: HO.LAB 13:08
PROVIDERS: PCP Internal Medicine; Visit Provider Advanced Practice Midwife
DX: Z20.2 Contact with and (suspected) exposure to infections with a predominantly sexual mode of transmission (principal); N89.8 Other specified noninflammatory disorders of vagina; M53.3 Sacrococcygeal disorders, not elsewhere classified
CPT/HCPCS: 0352U; 87491; 87591

== ENCOUNTER 2023-12-30 13:08 | Outpatient (AMB) | payer OTHER, SELFPAY ==
--- OUTSIDE RECORDS SUMMARY | 2023-12-30 13:10 | XMS_ITS | Patient Health Record ---
Author Organization [facility] Address [address], [place] [id number] Care Team Providers Care Cheesemaking Laborer Name Role Phone No, PCP Primary Care Provider Jose Cook [phone] ALLERGIES No Known Allergies REASON FOR REFERRAL No Information MEDICATIONS Medication SIG (Take, Route, Fr equency, Duration) Notes Start Date End Date Status ibuprofen 800 mg 1 tab(s) orally 3 ti mes a day for 10 days 09/05/2023 Active SOCIAL HISTORY Sex Assigned At : Social History Observation Description Sex Assigned At Unknown VITAL SIGNS Temperature 98.2 degrees Fahrenheit 09/05/2023 Blood pressure diastolic 88ar 09/05/2023 Blood pressure systolic 1344 09/05/2023 Encounters Encounter Location Date Provider Diagnosis [address] [id number] 09/05/2023 Jose Granger [address] [address] 09/13/2023 Jose Granger PLAN OF TREATMENT No Information Insurance Providers Payer Name Payer Address Payer Phone Subscriber Number Group Number Insured Name Patient Relationship to Insured Coverage Start Date Coverage End Date [place] [employer] [address] [place] [phone] [id number] Rebecca Malenahomero Self - patient is the insured MEDICAL (GENERAL) HISTORY Medical History History ICD Code gall bladder removal (2014)
--- OUTSIDE RECORDS SUMMARY | 2023-12-30 13:10 | XMS_ITS ---
Author Organization [facility] Address [address] [place] [id number] Care Team Providers Care Clinical Informatics Educator Name Role Phone No, PCP Primary Care Provider Jose Cook [phone] REASON FOR VISIT update Encounters Encounter Location Date Provider Diagnosis [address] [address] 09/13/2023 Jose Granger PLAN OF TREATMENT No Information
--- OUTSIDE RECORDS SUMMARY | 2023-12-30 13:10 | XMS_ITS ---
Author Organization [facility] Address [address] [place] [phone] Care Team Providers Care Sas Bi Developer Name Role Phone No, PCP Primary Care Provider Jose Cook [phone] REASON FOR VISIT in pain MEDICATIONS Medication SIG (Take, Route, Fr equency, Duration) Notes Start Date End Date Status ibuprofen 800 mg 1 tab(s) orally 3 ti mes a day for 10 days 09/05/2023 Active VITAL SIGNS Temperature 98.2 degrees Fahrenheit 09/05/19 24 Blood pressure systolic 1344 09/05/19 24 Blood pressure diastolic 88ar 024 Encounters Encounter Location Date Provider Diagnosis [address] [phone] 09/05/2023 Jose Granger PLAN OF TREATMENT Medication Medication Name Sig Start Date Stop Date Notes ibuprofen 800 mg 1 tab(s) orally 3 times a day for 10 days 09/05/2023
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
[2023-12-30 13:33] VITALS: BP 120/70; BMI 33.8
== END 2023-12-30 15:29 | disposition home or self-care (01) ==
LOC: HO.HWSM 13:08
PROVIDERS: PCP Internal Medicine; Visit Provider Advanced Practice Midwife
DX: Z01.419 Encounter for gynecological examination (general) (routine) without abnormal findings (principal); M53.3 Sacrococcygeal disorders, not elsewhere classified
CPT/HCPCS: 99395

== ENCOUNTER → 2024-01-21 08:19 | Outpatient (BNVA) | payer OTHER, SELFPAY | PROVIDERS: PCP Internal Medicine; Visit Provider Student in an Organized Health Care Education/Training Program ==

== ENCOUNTER 2024-02-12 09:07 | Outpatient (AMB) | payer OTHER, SELFPAY ==
[2024-02-12 09:24] VITALS: BP 120/70; PULSE 68; O2SAT 98; BMI 34.9
--- NOTE | 2024-02-12 09:24 | A.OFFPC_ITS ---
Vital Signs 02/12/24 09:24 Height 5 ft 8 in Weight 229 lb 6 oz BMI 34.9 BP 120/70 Blood Pressure Location Lt brachial Position Sitting Pulse 68 Pulse Source Pulse Oximeter Pulse Oximetry (%) 98 Oxygen Delivery Method Room Air Intake Visit Reasons: Annual exam Intake Note: Patient is here today for a physical. City Superintendent Required: No Accompanied by: Self / Same As Patient Is last menstrual period known: No ( Last menstrual period was end of October. Miscarriage in November at [facility] Allergies sulfasalazine Adverse Reaction (Intermediate, Verified 02/12/24 09:38) Nausea and Vomiting Medication List - Last Reconciled 02/12/24 by Jazmine Thakur MD adalimumab-adaz 40 mg (0.4 mL) subcut Q14D NS albuterol sulfate 90 mcg/actuation 2 puffs inhalation Q6H PRN 30 days NS etonogestrel (Nexplanon) subdermal metronidazole 0.75%(37.5mg/5gram) 1 appful vaginal BEDTIME 5 days Tobacco use date assessed: 02/12/24 Dental Screening Dental Screen Date: 02/07/23 HPI HPI Comments History of Present Illness Details This is a 24-year-old female with moderate recurrent major depression and seronegative rheumatoid arthritis that comes for physical exam. She declines treatment or counseling for depression. Started medication for rheumatoid arthritis recently and still has some diffuse joint pain. She follows with Rheumatology. Pap smear done 2021 was normal. Had a recent miscarriage 2 months ago. [facility] Medical History (Updated 02/12/24 @ 09:50 by Jazmine Thakur MD) Rash Sacral pain Mild recurrent major depression Panic attacks Allergic reaction Immunizations incomplete Neutropenia Hypovitaminosis Surgical History Hx laparoscopic cholecystectomy Family History Father Hypertension Mother No problems noted. Paternal Grandfather Hypertension Diabetes Paternal Uncle Stroke Brother No problems noted. Brother No problems noted. 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 1. Little interest or pleasure in doing things: not at all 2. Feeling down, depressed, or hopeless: more than half the days 3. Trouble falling or staying asleep, or sleeping too much: nearly every day 4. Feeling tired or having little energy: more than half the days 5. Poor appetite or overeating: more than half the days 6. Feeling bad about yourself - or that you are a failure or have let yourself or your family down: more than half the days 7. Trouble concentrating on things, such as reading the newspaper or watching television: not at all 8. Moving or speaking so slowly that other people could have noticed. Or the opposite - being so fidgety or restless that you have been moving around a lot more than usual: more than half the days 9. Thoughts that you would be better off or of hurting yourself in some way: not at all Total score: 13 Depression Screening Interpretation: Positive Depression Screening Follow-up: Existing condition, Follow-up Visit Requested and Declines treatment Depression Screening Done: Yes [id number] - PHQ-9 Billing: Yes Source: Developed by Drs. Cb Vogel, Amelie La, Douglas Rodriguez and colleagues, with an educational leora from [employer]. Thrive Questionnaire Date Thrive assessed: 02/05/24 I am a: Patient What is your living situation today?: I have a steady place to live Within the past 12 months, did the food you bought not last and you didn't have the money to get more?: I choose not to answer this question Within the past 12 months, did you worry whether your food would run out before you got money to buy more?: I choose not to answer this question Do you have trouble paying for medicines?: No Do you have trouble getting transportation to medical appointments?: No Do you have trouble paying your heating and electricity bill?: No Do you have trouble taking care of your child, family member or friend?: No Do you have trouble with day-to-day activities such as bathing, preparing meals, shopping, managing finances, etc.?: No Are you currently unemployed and looking for a job?: No Are you interested in more education?: Yes Please select the resources that you would like help with: None Currently or been in a relationship where the following occur: No concerns reported THRIVE Score: 0 AUDIT C Alcohol Use Questionnaire (AUDIT-C) 1. How often do you have a drink containing alcohol?: Never 3. How often do you have six or more drinks on one occasion?: Never Total Score: 0 Score Reviewed/Action Taken: No JIMMY-7 AMB Questionnaire JIMMY-7 Date JIMMY - 7 assessed: 02/12/24 Feeling nervous, anxious, or on edge: 1 = Several days Not being able to stop or control worryin = Several days Worrying too much about different things: 1 = Several days Trouble relaxin = Several days Being so restless that it is hard to sit still: 1 = Several days Becoming easily annoyed or irritable: 3 = Nearly every day Feeling afraid as if something awful might happen: 0 = Not at all Total JIMMY-7 score (0-4 normal; 5-9 mild; 10-14 moderate; 15-21 severe): 8 Source: Developed by Drs. Cb Vogel, Amelie La, Douglas Rodriguez and colleagues, with an educational leora from [employer]. JIMMY-7 Assessment Billing JIMMY-7 Assessment Tool: JIMMY-7 Assessment 07917 Review of Systems Const All systems reviewed & are unremarkable except as noted in HPI and below Card Denies chest pain at rest, Denies chest pain with activity, Denies edema, Denies irregular heart rhythm, Denies claudication, Denies dyspnea, Denies dyspnea on exertion, Denies orthopnea, Denies paroxysmal nocturnal dyspnea and Denies slow heart rate Resp Denies cough, Denies dyspnea and Denies dyspnea on exertion GI Denies abdominal pain, Denies change in bowel habits, Denies excessive flatus, Denies nausea and Denies vomiting Denies urinary incontinence, Denies urinary hesitancy and Denies urinary urgency Musc Denies abnormal gait, Denies atrophy, Denies deformity and Denies limited range of motion Skin/Breast Denies bleeding lesions, Denies changing lesions and Denies rash Neuro Denies abnormal gait and Denies lack of coordination Physical exam (Primary Care) Vital Signs: Last Vital Signs Pulse 68 02/12/24 09:24 BP 120/70 02/12/24 09:24 Pulse Ox 98 02/12/24 09:24 Oxygen Delivery Method Room Air 02/12/24 09:24 BMI result Body Mass Index 34.9 Tobacco/Smoking Status: Tobacco use Status Tobacco use date assessed 02/12/24 02/12/24 09:33 Patient Tobacco Use Status Never used Tobacco 02/12/24 09:33 e-Cigarette/Vaping Use Never Used 02/12/24 09:33 PHQ-9: PHQ-9 Score PHQ-9: Total score 13 02/12/24 09:33 Depression Screening Interpretation: Positive Depression Screening Follow-up: Existing condition, Follow-up Visit Requested and Declines treatment Thrive Assessment: Date of Thrive Assessment Date Thrive assessed 02/05/24 02/12/24 09:33 Currently or been in a relationship where the following occur: No concerns reported HENIN Head: Yes normal to inspection, Yes normocephalic and Yes atraumatic Ears: external ears normal Eyes General: appearance normal, both eyes and all related structures Eyelids: Yes eyelids normal Conjunctivae: conjunctivae normal Neck Neck: Yes normal visual inspection and Yes supple Resp Effort & Inspection: normal respiratory effort Auscultation: clear to auscultation bilaterally Cardio Jugular venous distension: no JVD Rate: regular rate Rhythm: regular rhythm Heart sounds: S1 normal heart sound present and S2 normal heart sound present GI Inspection: Yes normal to inspection Palpation (GI): Soft to palpation and nontender Auscultation: normal bowel sounds Skin General skin exam: no rashes or lesions noted Neuro General: no focal motor deficits Extrem General: Yes full ROM Psych Appearance: grossly normal Assessment and Plan Assessment & Plan (1) Physical exam: Code(s): Z00.00 - Encounter for general adult medical examination without abnormal findings Plan: Repeat in a year. (2) Moderate recurrent major depression: Code(s): F33.1 - Major depressive disorder, recurrent, moderate Plan: Declines treatment. (3) Seronegative rheumatoid arthritis: Comment: -ve RF -ve CCP dx 03/2023 MTX 03/2023-06/2023 DC due to SSZ 06/2023 - 08/2023 DC due to nausea/vomiting Code(s): M06.00 - Rheumatoid arthritis without rheumatoid factor, unspecified site Plan: Continue Humira. Follow-up with rheumatology. Orders: Orders Comprehensive [place]. Panel Fast Today Z00.00 - Encounter for general adult medical examination without abnormal findings Lipid Panel Today Z00.00 - Encounter for general adult medical examination without abnormal findings Vitamin D 25-OH Total Today E55.9 - Vitamin D deficiency, unspecified, R79.89 - Other specified abnormal findings of blood chemistry Calcium, Ionized Today E83.52 - Hypercalcemia Coding Level of Care Code Est Pt Prev Care 18-39y(41288) Diagnoses Physical exam Z00.00 Moderate recurrent major depression F33.1 Seronegative rheumatoid arthritis M06.00 Additional Codes JIMMY-7 Assessment Billing - JIMMY-7 Assessment Tool: JIMMY-7 Assessment 91717 ([id number]) Time Spent (min) 31
== END 2024-02-12 09:53 | disposition home or self-care (01) ==
PROVIDERS: PCP Internal Medicine; Visit Provider Internal Medicine
DX: Z00.00 Encounter for general adult medical examination without abnormal findings (principal); F33.1 Major depressive disorder, recurrent, moderate; M06.00 Rheumatoid arthritis without rheumatoid factor, unspecified site
CPT/HCPCS: 99395

== ENCOUNTER 2024-03-07 09:00 | Outpatient (REF) | payer OTHER, SELFPAY ==
[2024-03-07 09:17] LABS: MANUAL DIFF FLAG NO
[2024-03-07 09:37] LABS: Basophils Percent Auto 0.6 % (0-2); Eosinophils Absolute Auto 0.2 X10*3/uL (0.0-0.4); Eosinophils Percent Auto 2.5 % (0-4); Hemoglobin 12.4 g/dl (12.0-16.0); Imm Gran Abs Auto 0.02 X10*3/uL (0.00-0.03); Imm Gran Pct Auto 0.3 % (0.0-0.4); Lymphocytes Absolute Auto 2.1 X10*3/uL (1.2-4.9); Lymphocytes Percent Auto 32.1 % (20-40); Mean Corpuscular HGB Conc 32.6 g/dl (31.0-35.0); Mean Corpuscular Hemoglobin 25.9 pg (27.0-33.0); Mean Corpuscular Volume 79.3 fL (80.0-98.0); Mean Platelet Volume 9.9 fL (9.4-12.3); Monocytes Absolute Auto 0.7 X10*3/uL (0.1-1.2); Monocytes Percent Auto 10.2 % (2-11); Neutrophils Absolute Auto 3.5 x10*3/uL (2.0-8.3); Neutrophils Percent Auto 54.3 % (45-73); Platelet Count 334 X10*3/uL (160-400); Red Blood Count 4.79 X10*6/uL (4.20-5.50); Red Cell Distribution Width 13.5 % (11.0-16.0); White Blood Count 6.4 X10*3/uL (4.8-10.8)
[2024-03-07 10:12] LABS: Alanine Aminotransferase 15 U/L (0-31); Albumin Level 4.1 g/dL (3.5-5.0); Alkaline Phosphatase 94 U/L (39-117); Anion Gap 12 (12-20); Aspartate Amino Transferase 14 U/L (5-31); Bilirubin Total 0.4 mg/dL (0.0-1.0); Blood Urea Nitrogen 13 mg/dL (9-16); C Reactive Protein 0.73 mg/dL (< or = 0.50); Calcium 9.6 mg/dL (8.4-10.2); Carbon Dioxide 23 mmol/L (22-29); Chloride 108 mmol/L (96-108); Cholesterol 105 mg/dL (<200); Estimated Glomerular Filt Rate > 60; Glucose Fasting 111 mg/dL (60-99); Glucose Random 111 mg/dL (60-115); HDL Cholesterol 34 mg/dL (>40); LDL Cholesterol Calculated 61 mg/dL (<100); Potassium 4.1 mmol/L (3.3-5.1); Sodium 139 mmol/L (135-145); Total Protein 7.2 g/dL (6.5-8.0); Triglycerides 52 mg/dL (<150)
[2024-03-07 10:19] LABS: Erythrocyte Sedimentation Rate 8 MM/HR (0-20)
[2024-03-07 10:31] LABS: Vitamin D 25-OH Total 17.1 ng/mL (>30)
[2024-03-09 16:13] LABS: Calcium, Ionized 5.3 mg/dL (4.7-5.5)
== END 2024-03-07 09:01 | disposition home or self-care (01) ==
LOC: HO.LAB 09:00
PROVIDERS: PCP Internal Medicine; Referring Provider Internal Medicine; Visit Provider Student in an Organized Health Care Education/Training Program
DX: Z00.00 Encounter for general adult medical examination without abnormal findings (principal); M06.00 Rheumatoid arthritis without rheumatoid factor, unspecified site; R79.82 Elevated C-reactive protein (CRP); E83.52 Hypercalcemia
CPT/HCPCS: 36415; 80053; 80061; 82306; 82330; 85025; 85652; 86140

== ENCOUNTER 2024-03-10 07:52 | Outpatient (REF) | payer OTHER, SELFPAY | END 2024-03-10 07:53 | disposition home or self-care (01) | LOC: HO.LAB 07:52 | PROVIDERS: PCP Internal Medicine; Visit Provider Student in an Organized Health Care Education/Training Program | DX: Z13.89 Encounter for screening for other disorder (principal) ==

== ENCOUNTER 2024-03-10 07:52 | Outpatient (AMB) | payer OTHER, SELFPAY ==
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
[2024-03-10 07:56] VITALS: BP 112/62; PULSE 84; O2SAT 99; BMI 35.9
== END 2024-03-10 08:18 | disposition home or self-care (01) ==
PROVIDERS: PCP Internal Medicine; Visit Provider Student in an Organized Health Care Education/Training Program
DX: M06.00 Rheumatoid arthritis without rheumatoid factor, unspecified site (principal); Z79.899 Other long term (current) drug therapy; Z71.85 Encounter for immunization safety counseling
CPT/HCPCS: 99214